=== PATIENT | female | born 1955 | race Caucasian/White ===

== ENCOUNTER → 2017-04-26 | Outpatient (CLI) | payer OTHER ==
[~2017-04-26] MED LIST: ASPI-321 PO; ASPI81TA28 PO; GLC500 PO; HYDR-5688 PO; INSDGI SC; INSDGIPEN SC; LISI-725 PO; LPT/40 PO; METF-384 PO; PANT40TA PO; PARO10TA PO
[2017-04-26 12:49] LABS: BASO % 0.3 %; BASO ABS # 0.02 K/uL (0-0.2); COMPLETE YES; EOS % 1.7 %; HEMATOCRIT 35.2 % (37-47); IG% 0.3 %; LYMPH % 26.8 %; LYMPH ABS # 1.91 K/uL (1.2-3.4); MEAN CELL VOLUME 90.5 fL (80-100); MEAN CORPUSCULAR HEMOGLOBIN 29.6 pg (25-34); MEAN CORPUSCULAR HGB CONC 32.7 g/dl (32-36); MEAN PLATELET VOLUME 9.8 fL (7.4-10.4); MONO % 3.8 %; NEUT % 67.1 %; PLATELET COUNT 268 K/uL (130-400); PLT ESTIMATE NORMAL; RED BLOOD COUNT 3.89 M/uL (4.2-5.4); VACUOLIZATION 2+; WHITE BLOOD COUNT 7.14 K/uL (4.8-10.8)
[2017-04-26 13:01] LABS: ESTIMATED AVERAGE GLUCOSE 171 mg/dl; HA1C FLAG Normal (Normal)
[2017-04-26 13:02] LABS: BLOOD UREA NITROGEN 15 mg/dl (7-18); CALCIUM 9.7 mg/dl (8.5-10.1); CARBON DIOXIDE 26 mmol/L (21-32); CHLORIDE 103 mmol/L (98-107); CREATININE 0.66 mg/dl (0.60-1.20); GLUCOSE 145 mg/dl (70-99); POTASSIUM 4.3 mmol/L (3.5-5.1); SODIUM 139 mmol/L (136-145)
[2017-04-26 13:13] LABS: ALB/GLOB RATIO 1.1 (0.9-2); ALKALINE PHOSPHATASE 88 U/L (45-117); ALT/SGPT 26 U/L (12-78); AST/SGOT 13 U/L (15-37); CHOLESTEROL 157 mg/dl (0-200); CHOLESTEROL/HDL RATIO 3.1; HDL CHOLESTEROL 51 mg/dl; LDL CHOLESTEROL CALCULATED 71 mg/dl; TRIGLYCERIDES 177 mg/dl (0-150); VERY LOW DENSITY LIPOPROT CALC 35 mg/dl
[2017-04-26 13:36] LABS: RATIO 311.5 mcg/mg (0-30.0)
== END | disposition home or self-care (01) ==
LOC: C.LABBFT 08:25
PROVIDERS: ATTEND Physician Assistant Medical
DX: E11.65 Type 2 diabetes mellitus with hyperglycemia (principal)

== ENCOUNTER → 2017-05-29 | Outpatient (CLI) | payer OTHER ==
[2017-05-29 12:24] LABS: BASO % 0.2 %; BASO ABS # 0.01 K/uL (0-0.2); COMPLETE YES; EOS % 1.4 %; HEMATOCRIT 33.6 % (37-47); IG% 0.2 %; LYMPH % 24.8 %; LYMPH ABS # 1.63 K/uL (1.2-3.4); MEAN CELL VOLUME 91.6 fL (80-100); MEAN CORPUSCULAR HEMOGLOBIN 30.2 pg (25-34); MEAN PLATELET VOLUME 9.7 fL (7.4-10.4); MONO % 4.4 %; PLATELET COUNT 247 K/uL (130-400); RED BLOOD COUNT 3.67 M/uL (4.2-5.4); WHITE BLOOD COUNT 6.56 K/uL (4.8-10.8)
[2017-05-29 15:00] LABS: FERRITIN 68.6 ng/ml (8.0-388.0)
== END | disposition home or self-care (01) ==
LOC: C.LABBFT 09:51
PROVIDERS: ATTEND Physician Assistant Medical
DX: D64.9 Anemia, unspecified (principal)

== ENCOUNTER 2017-06-28 13:02 | Emergency (ER) | payer OTHER ==
[~2017-06-28] VITALS: Ht 165.1 cm; Wt 90.0 kg
[~2017-06-28 13:02] MED LIST changes: -ASPI81TA28 PO; -INSDGIPEN SC; -METF-384 PO
[2017-06-28 13:07] VITALS: TEMP 36.4; Ht 165.1 cm; Wt 90.0 kg
[2017-06-28] MEDS ORDERED: ASPI81TA28 PO (13:26)
[2017-06-28] MEDS ORDERED: METF-384 PO (13:26)
[2017-06-28] MEDS ORDERED: INSDGIPEN SC (13:26)
--- NOTE | 2017-06-28 14:09 | DIAGNOSTIC IMAGING REPORT ---
RIGHT KNEE 3 VIEWS HISTORY: 62 years-old Female right knee pain s/p fall Right acute right knee pain status post fall. COMPARISON: Right knee radiographs 08/13/2013. TECHNIQUE: 3 views of the right knee. FINDINGS: The bones are mildly demineralized. Moderate lateral is severe medial and patellofemoral compartment osteoarthritis is noted with extensive marginal spurring. There is a moderate-sized joint effusion. Vascular calcifications are noted. There is no acute fracture or dislocation. IMPRESSION: 1. No acute fracture or dislocation. 2. Moderate lateral with severe medial and patellofemoral compartment osteoarthritis. 3. Moderate joint effusion. The above report was generated using voice recognition software. It may contain grammatical, syntax or spelling errors. Electronically signed by: Mingo Philip M.D. 06/28/2017 2:07 PM Dictated Date/Time: 06/28/2017 2:06 PM
--- NOTE | 2017-06-28 14:12 | DIAGNOSTIC IMAGING REPORT ---
RIGHT HAND MIN 3 VIEWS ROUTINE HISTORY: 62 years-old Female right hand pain/swelling s/p fall Right acute right hand pain and swelling without reported trauma. COMPARISON: None available. TECHNIQUE: 3 views of the right hand FINDINGS: There is an acute or subacute mildly comminuted fracture involving the base of the fifth metacarpal with intra-articular extension into the carpometacarpal joint. There is slight medial displacement of approximately 2 mm. Mild associated soft tissue swelling. Moderate degenerative changes are seen about the wrist and hand, notably within the first carpal metacarpal and interphalangeal joints. IMPRESSION: 1. Acute to subacute mildly comminuted intra-articular fracture involves the base of the fifth metacarpal with surrounding soft tissue swelling. 2. Multifocal degenerative changes about the hand and wrist. The above report was generated using voice recognition software. It may contain grammatical, syntax or spelling errors. Electronically signed by: Mingo Philip M.D. 06/28/2017 2:11 PM Dictated Date/Time: 06/28/2017 2:07 PM
--- NOTE | 2017-06-28 14:40 | EMERGENCY ROOM VISIT NOTE ---
ED Visit Note First contact with patient: 13:22 CHIEF COMPLAINT: Hand injury, fall from sidewalk HISTORY OF PRESENT ILLNESS: This 62-year-old female patient presented to the emergency department approximately one hour after they injured the right hand, and knee when she fell from a sidewalk. The patient states she was walking back to her car, and did not realize there is a sidewalk in front of her. The patient states she tripped over the alleged, and landed on her right hand and leg. The patient states she then hit the right side of her head off of the ground. The patient denies any loss of consciousness. The patient denies any ongoing head pain or headache. She denies any blurry vision, dizziness, nausea , vomiting, confusion, altered mental status, tinnitus, or other associated symptoms. The patient rates the pain in her hand as minimal and and 0/10. The patient denies any numbness or tingling. The patient does not have injuries to the wrist. The patient has not had a previous fracture to this hand. REVIEW OF SYSTEMS: A 6 system review of systems was completed with positives and pertinent negatives in the HPI. ALLERGIES: None MEDICATIONS: Atorvastatin, Lantus, lisinopril, Glucophage, Protonix, Paxil. The patient states she does take aspirin, but she has not taken this in approximately one week. PMH: Hyperlipidemia, diabetes, hypertension, GERD, anxiety/depression SOCIAL HISTORY: Lives locally with family. She denies drug, alcohol, tobacco use. PHYSICAL EXAM: Vital Signs: Reviewed Nurse's notes, vital signs stable. GENERAL : This is a 62-year-old female, in no acute distress, well-developed, well- nourished. MUSCULOSKELETAL: There is no deformity of the right hand. There is tenderness palpation over the fifth metacarpal. There is no thenar or hypothenar eminence atrophy. Normal thumb opposition to all fingers. Mail Order Biller strength 5/5. There is no laceration. Capillary refill less than 2 seconds. No tenderness of the fingers or wrist. Full range of motion of the wrist. No snuff box tenderness. Radial pulse 2+. There is tenderness of the right lateral knee on palpation. There is no instability. Raza and Damari's test negative. No discomfort with walking and the patient is able to bear weight. NEURO: Alert and oriented to person, place, and time. Normal sensation to light and sharp touch. Normal mini-mental status exam. HEAD: Normocephalic, atraumatic. No tenderness on palpation. EYES: Pupils are equal round and reactive to light and accommodation. EOMs are full and optic discs and fundi are normal. There is no swelling or discoloration of the tissue surrounding the eyes. EARS: External auditory canals clear without blood. NOSE: Patent without tenderness. No septal hematoma. FACE: No facial tenderness. NECK: Supple. There is no cervical spine tenderness. The patient does not have tenderness with movement of the neck. RADIOLOGY: X-Ray Right Knee: TECHNIQUE: 3 views of the right knee. FINDINGS: The bones are mildly demineralized. Moderate lateral is severe medial and patellofemoral compartment osteoarthritis is noted with extensive marginal spurring. There is a moderate-sized joint effusion. Vascular calcifications are noted. There is no acute fracture or dislocation. IMPRESSION: 1. No acute fracture or dislocation. 2. Moderate lateral with severe medial and patellofemoral compartment osteoarthritis. 3. Moderate joint effusion. X-Ray Right Hand: TECHNIQUE: 3 views of the right hand FINDINGS: There is an acute or subacute mildly comminuted fracture involving the base of the fifth metacarpal with intra-articular extension into the carpometacarpal joint. There is slight medial displacement of approximately 2 mm. Mild associated soft tissue swelling. Moderate degenerative changes are seen about the wrist and hand, notably within the first carpal metacarpal and interphalangeal joints. IMPRESSION: 1. Acute to subacute mildly comminuted intra-articular fracture involves the base of the fifth metacarpal with surrounding soft tissue swelling. 2. Multifocal degenerative changes about the hand and wrist. EMERGENCY DEPARTMENT COURSE: I examined the patient. X-rays of the right knee and hand was reviewed by myself and radiologist. Right knee x-ray shows no acute fracture or dislocation. X-ray of the right hand does show a fracture at the base of the 5th metacarpal. Under my direct supervision, the patient was put in an Ortho-Glass boxer's splint. Neurovascular status was rechecked and intact. She was encouraged to follow up with orthopedics. Throughout the course of the patient's care, utilizing shared decision making, the patient and I discussed the risks versus benefits of performing a head CT scan. The patient did not hit her head directly, however it it secondarily to hitting her hand. Her neurological examination has been normal since she's gotten here, and she is having no symptoms. The patient decided against having a CT scan completed at this time, and will return to the emergency department for worsening symptoms. The patient was discharged home in good condition. DIFFERENTIAL DIAGNOSIS: Intracranial hemorrhage, closed head injury, concussion , fracture, hand contusion, hand fracture, sprain, knee fracture, contusion, and others. DIAGNOSIS: Right fifth metacarpal fracture, right knee contusion, fall DISCHARGE INSTRUCTIONS: ORTHOPEDIC INSTRUCTIONS: You were seen today for a head injury. We did not complete a CT scan, as your headache went away and examination was normal. If you experience worsening headache, dizziness, blurry vision, nausea/vomiting, or other associated symptoms, return to the ED immediately for further evaluation and management. Ibuprofen(Motrin, Advil) may be used for fever or pain. Use 600mg every six hours as needed. Take with food. Avoid using more than 2400mg in a 24 hour period. Do not use 2400mg per day for more than three consecutive days without physician direction. Prolonged inappropriate use can lead to stomach upset or ulcers. (AND/OR) Acetaminophen(Tylenol) may be used for fever or pain. Use 1000mg every six hours as needed. Avoid using more than 3000mg in a 24 hour period. Ice compresses for 20 minutes at a time four times daily for 2-3 days. Rest and elevate your injury. Do not get the splint wet. If your splint feels excessively tight, you have worsening pain, develop numbness or tingling, or your digits appear blue, loosen the monet wrap. Then reapply the monet wrap gently without removing the splint. If your symptoms are not quickly relieved return to the ER for re- evaluation. Return to the ER immediately for any numbness, tingling, severe pain, extreme swelling in the extremity or as needed. Call [facility], [phone], today or tomorrow to arrange follow up for your injury. Follow-up with your primary care physician in 2 to 3 days for a recheck of your current condition. Problem List Medical Problems: (1) Pancreatitis Status: Resolved (2) Type 2 diabetes mellitus Status: Chronic Current/Historical Medications Scheduled Aspirin (Aspirin Ec), 81 MG PO DAILY Atorvastatin (Lipitor), 40 MG PO QAM Insulin Glargine (Lantus Solostar), 20 UNITS SC DAILY Lisinopril (Zestril), 20 MG PO QAM Metformin Hcl (Glucophage), 1,000 MG PO BIDM Pantoprazole (Protonix), 40 MG PO QAM Paroxetine Hcl (Paxil), 10 MG PO DIRECTED Allergies Coded Allergies: No Known Allergies (Verified , 01/25/16) Vital Signs Date Time Temp Pulse Resp B/P (MAP) Pulse Ox O2 Delivery O2 Flow Rate FiO2 06/28/17 14:52 66 16 112/92 97 06/28/17 13:07 36.4 64 18 99/65 96 Room Air Departure Information Impression Primary Impression: Closed fracture of 5th metacarpal Additional Impressions: Knee contusion Closed head injury Fall Dispostion Home / Self-Care Condition GOOD Referrals Darnell Adhikari M.D. (PCP) Garth German MD Patient Instructions ED Fx Jocelin Rodriguez [facility] Additional Instructions ORTHOPEDIC INSTRUCTIONS: You were seen today for a head injury. We did not complete a CT scan, as your headache went away and examination was normal. If you experience worsening headache, dizziness, blurry vision, nausea/vomiting, or other associated symptoms, return to the ED immediately for further evaluation and management. Ibuprofen(Motrin, Advil) may be used for fever or pain. Use 600mg every six hours as needed. Take with food. Avoid using more than 2400mg in a 24 hour period. Do not use 2400mg per day for more than three consecutive days without physician direction. Prolonged inappropriate use can lead to stomach upset or ulcers. (AND/OR) Acetaminophen(Tylenol) may be used for fever or pain. Use 1000mg every six hours as needed. Avoid using more than 3000mg in a 24 hour period. Ice compresses for 20 minutes at a time four times daily for 2-3 days. Rest and elevate your injury. Do not get the splint wet. If your splint feels excessively tight, you have worsening pain, develop numbness or tingling, or your digits appear blue, loosen the monet wrap. Then reapply the monet wrap gently without removing the splint. If your symptoms are not quickly relieved return to the ER for re- evaluation. Return to the ER immediately for any numbness, tingling, severe pain, extreme swelling in the extremity or as needed. Call [facility], [phone], today or tomorrow to arrange follow up for your injury. Follow-up with your primary care physician in 2 to 3 days for a recheck of your current condition. Problem Qualifiers Primary Impression: Closed fracture of 5th metacarpal Encounter type: initial encounter Metacarpal location: base Fracture alignment: displaced Laterality: right Qualified Codes: S62.316A - Displaced fracture of base of fifth metacarpal bone, right hand, initial encounter for closed fracture Additional Impressions: Knee contusion Encounter type: initial encounter Laterality: right Qualified Codes: S80.01XA - Contusion of right knee, initial encounter Closed head injury Encounter type: initial encounter Qualified Codes: S09.90XA - Unspecified injury of head, initial encounter Fall Encounter type: initial encounter Qualified Codes: W19.XXXA - Unspecified fall, initial encounter
[2017-06-28 14:52] VITALS: BP 112/92; PULSE 66; O2SAT 97
== END 2017-06-28 14:52 | disposition home or self-care (01) ==
LOC: C.EDB 13:03 → C.EDD 14:52
DX: S62.316A Displaced fracture of base of fifth metacarpal bone, right hand, initial encounter for closed fracture (principal); S80.01XA Contusion of right knee, initial encounter; S09.90XA Unspecified injury of head, initial encounter; W10.1XXA Fall (on)(from) sidewalk curb, initial encounter; Z79.899 Other long term (current) drug therapy; Z79.4 Long term (current) use of insulin; E78.5 Hyperlipidemia, unspecified; E11.9 Type 2 diabetes mellitus without complications; I10 Essential (primary) hypertension; K21.9 Gastro-esophageal reflux disease without esophagitis; F41.8 Other specified anxiety disorders

== ENCOUNTER → 2017-07-05 | Outpatient (CLI) | payer OTHER ==
[~2017-07-05] MED LIST changes: -ASPI-321 PO; +ASPI81TA28 PO; -GLC500 PO; -HYDR-5688 PO; -INSDGI SC; +INSDGIPEN SC; +METF-384 PO
== END | disposition home or self-care (01) ==
LOC: C.RDSM 09:13
PROVIDERS: ATTEND Orthopaedic Surgery Sports Medicine
DX: S62.347A Nondisplaced fracture of base of fifth metacarpal bone, left hand, initial encounter for closed fracture (principal); X58.XXXA Exposure to other specified factors, initial encounter

== ENCOUNTER → 2017-07-26 | Outpatient (CLI) | payer OTHER | END | disposition home or self-care (01) | LOC: C.RDSM 11:35 | PROVIDERS: ATTEND Orthopaedic Surgery Sports Medicine | DX: Z09 Encounter for follow-up examination after completed treatment for conditions other than malignant neoplasm (principal); S62.91XD Unspecified fracture of right hand, subsequent encounter for fracture with routine healing; X58.XXXD Exposure to other specified factors, subsequent encounter ==

== ENCOUNTER → 2017-08-10 | Day surgery (SDC) | payer OTHER ==
[2017-08-01 13:54] VITALS: Ht 162.6 cm; Wt 89.5 kg
[~2017-08-10] VITALS: Ht 162.6 cm; Wt 89.5 kg
[~2017-08-10] MED LIST changes: -ASPI81TA28 PO; +LABETALOL HCL IV 5 MG/ML 20ML IV ONE; +LIDOCAINE HCL 2% 2 ML VIAL (20MG/ML) ONE; +MIDAZOLAM HCL 1 MG/ML 2ML VIAL ONE; +ONDANSETRON INJ 2 MG/ML 2 ML VIAL ONE; +PROPOFOL IV EMULSION 10 MG/ML 20 ML VIAL IV ONE
[2017-08-10 14:35] VITALS: TEMP 36.6
--- NOTE | 2017-08-10 15:30 | Endo History and Physical ---
History & Physical Date of Service: Aug 10, 2017. Chief Complaint: anemia abnormal video capsule endoscopy Referring Physician: Dr. Adhikari History of Present Illness anemia- capsule study finding Past Medical History Diabetes, Anxiety, Reflux, High Cholesterol, Hypertension Past Surgical History Hx Cardiac Surgery: No Hx Internal Defibrillator: No Hx Pacemaker: No Hx Abdominal Surgery: Yes (APPY, BILLY) Hx of Implantable Prosthesis: No Hx Post-Op Nausea and Vomiting: No Hx Cancer Surgery: No Hx Thoracic Surgery: No Hx Orthopedic: Yes (LEFT ARM SURGERY (HARDWARE)) Hx Urinary Tract Surgery: No Family History None Social History Smoking Status: Never Smoker Hx Substance Use: No Hx Alcohol Use: Yes (RARELY) Allergies Coded Allergies: No Known Allergies (Verified , 08/01/17) Current Medications Reported Home Medications Medications Dose Route/Sig Max Daily Dose Days Date Category Dose Instructions Glucophage (Metformin Hcl) 1,000 Mg Tab 1,000 Mg PO BIDM 06/28/17 Reported Lantus Solostar (Insulin Glargine) 100 Unit/Ml Inj 10 Units SC HS 06/28/17 Reported Paxil (Paroxetine Hcl) 10 Mg Tab 10 Mg PO DIRECTED 07/27/15 Reported PT ONLY TAKES WHEN NECESSARY, NOT EVERY DAY Protonix (Pantoprazole Sodium) 40 Mg Tab 40 Mg PO DAILY PRN 07/27/15 Reported Lipitor (Atorvastatin) 40 Mg Tab 40 Mg PO QAM 08/13/13 Reported Zestril (Lisinopril) 20 Mg Tab 20 Mg PO QAM 12/17/09 Reported Vital Signs Weight (Kilograms): 89.55 Height (Feet): 5 Height (Inches): 4 Date Time Temp Pulse Resp B/P (MAP) Pulse Ox O2 Delivery O2 Flow Rate FiO2 08/10/17 14:35 36.6 77 18 110/74 (86) 99 Room Air Physical Exam AAox3 Nls1s2 Lungs CTA Abd soft NT ND + BS - CCE Assessment and Plan EGD/SB enterscopy
--- NOTE | 2017-08-10 16:48 | Anesthesiology Progress Note ---
Anesthesia Post Op Note Date & Time Aug 10, 2017 at 16:48 Vital Signs Pain Intensity: 0 Vital Signs Past 12 Hours Date Time Temp Pulse Resp B/P (MAP) Pulse Ox O2 Delivery O2 Flow Rate FiO2 08/10/17 14:35 36.6 77 18 110/74 (86) 99 Room Air Notes Mental Status: alert / awake / arousable, participated in evaluation Pt Amnestic to Procedure: Yes Nausea / Vomiting: adequately controlled Pain: adequately controlled Airway Patency, RR, SpO2: stable & adequate BP & HR: stable & adequate Hydration State: stable & adequate Anesthetic Complications: no major complications apparent
--- NOTE | 2017-08-10 16:56 | GI REPORT ---
Procedure Date: 08/10/2017 3:50 PM Procedure: Upper GI endoscopy Indications: Iron deficiency anemia secondary to chronic blood loss, Abnormal video capsule endoscopy Medicines: Propofol per Anesthesia Complications: No immediate complications. Estimated blood loss: None. Estimated Blood Loss: Estimated blood loss: none. Procedure: Pre-Anesthesia Assessment: - Prior to the procedure, a History and Physical was performed, and patient medications and allergies were reviewed. The patient's tolerance of previous anesthesia was also reviewed. The risks and benefits of the procedure and the sedation options and risks were discussed with the patient. All questions were answered, and informed consent was obtained. Prior Anticoagulants: The patient has taken no previous anticoagulant or antiplatelet agents. ASA Grade Assessment: II - A patient with mild systemic disease. After reviewing the risks and benefits, the patient was deemed in satisfactory condition to undergo the procedure. After obtaining informed consent, the endoscope was passed under direct vision. Throughout the procedure, the patient's blood pressure, pulse, and oxygen saturations were monitored continuously. The scope was introduced through the mouth, and advanced to the mid-jejunum. The upper GI endoscopy was accomplished without difficulty. The patient tolerated the procedure well. Findings: The examined esophagus was normal. The entire examined stomach was normal. The cardia and gastric fundus were normal on retroflexion. Retained gastric contents are not identified on this exam. The examined duodenum was normal. The examined jejunum was normal. Impression: - Normal esophagus. - Normal stomach. - Normal examined duodenum. - Normal examined jejunum. - No specimens collected. Recommendation: - Discharge patient to home (ambulatory). - Advance diet as tolerated. - Check hemoglobin monthly. - Return to referring physician as previously scheduled. - If heme positive stools occur/persist or if anemic may need to consider [place] [facility] [place] Willem Akhtar MD 08/10/2017 4:55:42 PM This report has been signed electronically. Note Initiated On: 08/10/2017 3:50 PM I attest to the content of the Intraoperative Record and orders documented therein, exceptions below
[2017-08-10 17:09] VITALS: BP 96/56; PULSE 69; O2SAT 96
--- NOTE | 2017-08-10 17:20 | Discharge Instructions ---
Endoscopy Patient Instructions Date / Procedure(s) Performed Aug 10, 2017. EGD Allergy Information Coded Allergies: No Known Allergies (Verified , 08/01/17) Discharge Date / Findings Aug 10, 2017. normal EGD/SBE Medication Instructions Stopped Medication(s): last dose Glucophage last agustín Restart Stopped Medication(s): Reported Home Medications Medications Dose Route/Sig Max Daily Dose Days Date Category Dose Instructions Glucophage (Metformin Hcl) 1,000 Mg Tab 1,000 Mg PO BIDM 06/28/17 Reported Lantus Solostar (Insulin Glargine) 100 Unit/Ml Inj 10 Units SC HS 06/28/17 Reported Paxil (Paroxetine Hcl) 10 Mg Tab 10 Mg PO DIRECTED 07/27/15 Reported PT ONLY TAKES WHEN NECESSARY, NOT EVERY DAY Protonix (Pantoprazole Sodium) 40 Mg Tab 40 Mg PO DAILY PRN 07/27/15 Reported Lipitor (Atorvastatin) 40 Mg Tab 40 Mg PO QAM 08/13/13 Reported Zestril (Lisinopril) 20 Mg Tab 20 Mg PO QAM 12/17/09 Reported Provider Instructions Activity Restrictions - No exercising or heavy lifting for 24 hours. - Do not drink alcohol the day of the procedure. - Do not drive a car or operate machinery until the day after the procedure. - Do not make any important decisions or sign important papers in 24 hours after the procedure. Following Day: - Return to full activity which may include returning to work/school. Diet Start your diet with liquids and light foods (jello, soup, juice, toast). Then eat your usual diet if not nauseated. Treatment For Common After Affects For mild abdominal pain, bloating, or excessive gas: - Rest - Eat lightly - Lie on right side Reported Home Medications Medications Dose Route/Sig Max Daily Dose Days Date Category Dose Instructions Glucophage (Metformin Hcl) 1,000 Mg Tab 1,000 Mg PO BIDM 06/28/17 Reported Lantus Solostar (Insulin Glargine) 100 Unit/Ml Inj 10 Units SC HS 06/28/17 Reported Paxil (Paroxetine Hcl) 10 Mg Tab 10 Mg PO DIRECTED 07/27/15 Reported PT ONLY TAKES WHEN NECESSARY, NOT EVERY DAY Protonix (Pantoprazole Sodium) 40 Mg Tab 40 Mg PO DAILY PRN 07/27/15 Reported Lipitor (Atorvastatin) 40 Mg Tab 40 Mg PO QAM 08/13/13 Reported Zestril (Lisinopril) 20 Mg Tab 20 Mg PO QAM 12/17/09 Reported Follow-Up Information Follow-up with Dr. Adhikari as scheduled Anesthesia Information What You Should Know You have had a procedure that required some medicine to reduce anxiety and discomfort. This treatment is called moderate sedation. After receiving the treatment, you may be sleepy, but you will be able to breathe on your own. The effects of the treatment may last for several hours. Follow these instructions along with Activity/Diet recommendations noted above: * Do NOT do anything where dizziness or clumsiness would be dangerous. * Rest quietly at home today, then you can be up and about tomorrow. * Have a responsible person stay with you the rest of today. * You may have had an I.V. today. If so, you may take the dressing off later today. Recommendations Call your doctor if: * Trouble breathing * Continuous vomiting for more than 24 hours * Temperature above 101 degrees * Severe abdominal pain or bloating * Pain not relieved by pain medicine ordered * There is increased drainage or redness from any incision * A large amount of rectal bleeding greater than 2-3 tablespoons. (If you had a polyp/s removed or have hemorrhoids, a small amount of blood - from the rectum is to be expected.) * You have any unanswered questions or concerns. IN THE EVENT OF A SERIOUS EMERGENCY, GO TO THE NEAREST EMERGENCY ROOM Your discharge instructions were prepared by provider Willem Phoenix. Patient Instructions Signature Page Delicia Man Patient (or Guardian) Signature/Date: I have read and understand the instructions given to me by my caregivers. Caregiver/RN/Doctor Signature/Date: The above-named patient and/or guardian has received patient instructions on this date. + Original Patient Signature Page (only) stays with chart. Please make copy for patient.
[2017-08-10 18:49] LABS: HEMATOCRIT 31.7 % (37-47); MEAN CELL VOLUME 90.3 fL (80-100); MEAN CORPUSCULAR HEMOGLOBIN 30.2 pg (25-34); MEAN CORPUSCULAR HGB CONC 33.4 g/dl (32-36); MEAN PLATELET VOLUME 9.9 fL (7.4-10.4); PLATELET COUNT 220 K/uL (130-400); RED BLOOD COUNT 3.51 M/uL (4.2-5.4); WHITE BLOOD COUNT 10.88 K/uL (4.8-10.8)
== END | disposition home or self-care (01) ==
LOC: C.GI 14:02
PROVIDERS: ATTEND Internal Medicine Gastroenterology
DX: D64.9 Anemia, unspecified (principal); E11.9 Type 2 diabetes mellitus without complications; F41.9 Anxiety disorder, unspecified; K21.9 Gastro-esophageal reflux disease without esophagitis; E78.00 Pure hypercholesterolemia, unspecified; I10 Essential (primary) hypertension; Z90.89 Acquired absence of other organs; Z90.49 Acquired absence of other specified parts of digestive tract; Z79.84 Long term (current) use of oral hypoglycemic drugs; Z79.4 Long term (current) use of insulin

== ENCOUNTER → 2017-09-25 | Outpatient (CLI) | payer OTHER ==
[~2017-09-25] MED LIST changes: -LABETALOL HCL IV 5 MG/ML 20ML IV ONE; -LIDOCAINE HCL 2% 2 ML VIAL (20MG/ML) ONE; -MIDAZOLAM HCL 1 MG/ML 2ML VIAL ONE; -ONDANSETRON INJ 2 MG/ML 2 ML VIAL ONE; -PROPOFOL IV EMULSION 10 MG/ML 20 ML VIAL IV ONE
[2017-09-25 12:36] LABS: FERRITIN 66.1 ng/ml (8.0-388.0)
[2017-09-25 12:40] LABS: BASO % 0.3 %; BASO ABS # 0.02 K/uL (0-0.2); COMPLETE YES; EOS % 1.7 %; IG% 0.1 %; LYMPH % 25.2 %; LYMPH ABS # 1.83 K/uL (1.2-3.4); MEAN CELL VOLUME 92.6 fL (80-100); MEAN CORPUSCULAR HGB CONC 32.4 g/dl (32-36); MEAN PLATELET VOLUME 9.9 fL (7.4-10.4); MONO % 3.9 %; NEUT % 68.8 %; PLATELET COUNT 259 K/uL (130-400); RED BLOOD COUNT 3.67 M/uL (4.2-5.4); WHITE BLOOD COUNT 7.27 K/uL (4.8-10.8)
== END | disposition home or self-care (01) ==
LOC: C.LABBFT 09:31
PROVIDERS: ATTEND Physician Assistant Medical
DX: D64.9 Anemia, unspecified (principal)

== ENCOUNTER 2019-05-17 05:06 | Inpatient (IN) ==
[2019-05-17] MEDS ORDERED: ONDANSETRON INJ 2 MG/ML 2 ML VIAL IV STA (05:21)
[2019-05-17] MEDS ORDERED: SODIUM CHLORIDE 0.9% 1000ML 1,000 ML IV ONE (05:21)
[2019-05-17] MEDS ORDERED: MoRPHine SULFATE 10 MG/ML CARP/VIAL IV STA (05:21)
--- NOTE | 2019-05-17 05:39 | Emergency Department Note ---
History of Present Illness General Chief complaint: Abdominal Pain Stated complaint: NAUSEA,VOMITING,ABD PAIN Source: patient Mode of arrival: ambulatory Limitations: no limitations History of Present Illness Maximum Pain Intensity: 8 This patient is a 64-year-old female who presents to the emergency department complaining of abdominal pain, nausea and vomiting which started 12 hours ago. The patient states that she ate a biscuit given to her by a client and immediately began to feel pain in her upper abdomen and vomiting. She has since had multiple episodes of vomiting and persistent pain. She rates her discomfort an 8/10. She states that she has been having sweats. She has had a prior cholecystectomy and appendectomy. She reports this pain feels similar to when she had her cholecystectomy. She states nothing makes the pain better or worse. She denies fevers, diarrhea, chest pain or shortness of breath. She is a diabetic but states that her sugars are well controlled with medication. Home Medications Home Medications Medication Instructions Recorded Confirmed Type lisinopril 20 mg tablet 20 mg PO DAILY #90 tab 03/27/19 05/17/19 History metformin 1,000 mg tablet 1,000 mg PO BID #180 tab 03/27/19 05/17/19 History pantoprazole 40 mg tablet,delayed 40 mg PO DAILY #90 tab 03/27/19 05/17/19 History release atorvastatin 40 mg tablet 40 mg PO HS #90 tab 04/18/19 05/17/19 Rx Allergies Allergy/AdvReac Type Severity Reaction Status Date / Time No Known Allergies Allergy Verified 05/17/19 05:33 Past Med/Surg History Medical History Microalbuminuria (Acute) Internal hemorrhoids (Acute) Hypertension (Acute) Hyperlipidemia (Acute) Fatty liver (Acute) Diverticulosis of colon (Acute) Diabetes mellitus type 2, uncontrolled (Acute) Depression (Acute) Anemia (Acute) Acid reflux disease (Acute) Abdominal pain (Acute) Social History Feels Safe at Home: Yes Smoking Status: Never smoker Review of Systems A total of 10 systems reviewed and were otherwise negative Physical Exam Vital Signs Vital Signs - 24 hr 05/17/19 05:09 05/17/19 05:50 05/17/19 06:05 Temperature 36.7 C Temperature Source Oral Sepsis Action Taken by Nursing No Action Required Oxygen Flow Rate - Titration 2 Pulse Oximetry Post Tiitration 93 Pulse Rate 98 H Pulse Rate [Apical] 90 Respiratory Rate 18 18 Respiratory Effort / Characteristics Non-Labored Respiratory Depth Normal Blood Pressure 144/99 H Blood Pressure [Right Arm] 145/97 H Blood Pressure Mean 114 Blood Pressure Mean [Right Arm] 113 Pulse Oximetry 98 87 L 99 Oxygen Delivery Method Room Air Nasal Cannula Oxygen Flow Rate 0 2 05/17/19 06:34 Temperature Temperature Source Sepsis Action Taken by Nursing Oxygen Flow Rate - Titration Pulse Oximetry Post Tiitration Pulse Rate Pulse Rate [Apical] 92 H Respiratory Rate 19 Respiratory Effort / Characteristics Respiratory Depth Blood Pressure Blood Pressure [Right Arm] 163/108 H Blood Pressure Mean Blood Pressure Mean [Right Arm] 126 Pulse Oximetry 99 Oxygen Delivery Method Nasal Cannula Oxygen Flow Rate 2 VITALS: Vitals are noted on the nurse's note and reviewed by myself. Vital signs stable. GENERAL: This is a 64-year-old female, in no acute distress, nondiaphoretic, well-developed well-nourished. SKIN: The skin was without rashes, erythema, edema, or bruising. EARS: External auditory canals clear, tympanic membranes pearly murray without erythema or effusion bilaterally. EYES: Pupils equal round and reactive to light and accommodation. Conjunctivae without injection, sclerae without icterus. MOUTH: Mucous membranes moist. Tonsils are not enlarged. Pharynx without erythema or exudate. NECK: Supple without nuchal rigidity. No lymphadenopathy. HEART: Regular rate and rhythm without murmurs gallops or rubs. LUNGS: Clear to auscultation bilaterally without wheezes, rales or rhonchi. ABDOMEN: Positive bowel sounds x 4. Soft, moderate tenderness to palpation in the epigastric region. No guarding or rebound tenderness. NEURO: Patient was alert and oriented to person place and time. Course Reevaluation(s) Reevaluation #1: Patient was reevaluated and states that her pain is starting to come back after returning from CT scan. An additional dose of pain medication was ordered. Results were discussed with the patient and she is agreeable to admission. Consultations Consultation #1: Dr. Gurvinder Cerda - [facility] hospitalist Administered Medications Ioversol (Optiray 320 100ml) 94 ml IV ONCE PRN PRN Reason: Interaction Checking Stop: 05/21/19 06:10 Last Admin: 05/17/19 06:11 Dose: 94 ml Documented by: [id number] Discontinued Medications Sodium Chloride (Nss 1000ml) 1,000 mls @ 999 mls/hr IV .Q1H1M ONE Stop: 05/17/19 06:21 Last Infusion: 05/17/19 06:54 Dose: 0 mls/hr Documented by: [id number] Admin: 05/17/19 05:40 Dose: 999 mls/hr Documented by: [id number] Morphine Sulfate (Morphine Sulfate) 6 mg IV NOW STA Stop: 05/17/19 05:22 Last Admin: 05/17/19 05:39 Dose: 6 mg Documented by: [id number] Ondansetron HCl (Zofran) 4 mg IV NOW STA Stop: 05/17/19 05:22 Last Admin: 05/17/19 05:40 Dose: 4 mg Documented by: [id number] Medical Decision Making Differential Diagnosis Differential diagnosis includes pancreatitis, kidney stone, peptic ulcer disease, bowel obstruction, gastroenteritis, among others. Home Medications Current Medication List: was personally reviewed by me Laboratory Data Attestation: I reviewed the patient's lab results. Result diagrams: 05/17/19 05:33 05/17/19 05:33 Lab Results 05/17/19 05/17/19 05/17/19 Range/Units 05:33 05:33 06:06 WBC 14.36 H (4.8-10.8) K/uL RBC 4.26 (4.2-5.4) M/uL Hgb 13.1 (12.0-16.0) g/dL Hct 38.4 (37-47) % MCV 90.1 (80-100) fL MCH 30.8 (25-34) pg MCHC 34.1 (32-36) g/dL RDW Std Deviation 43.5 (36.4-46.3) fL RDW Coeff of Carlos Alberto 13.1 (11.5-14.5) % Plt Count 252 (130-400) K/uL MPV 9.7 (7.4-10.4) fL Immature Gran % (Auto) 0.2 % Neut % (Auto) 88.7 % Lymph % (Auto) 5.6 % [place] % (Auto) 5.4 % Eos % (Auto) 0.0 % Baso % (Auto) 0.1 % Immature Gran # (Auto) 0.03 H (0.00-0.02) K/uL Neut # (Auto) 12.74 H (1.4-6.5) K/uL Lymph # (Auto) 0.81 L (1.2-3.4) K/uL [place] # (Auto) 0.77 H (0.11-0.59) K/uL Eos # (Auto) 0.00 (0-0.5) K/uL Baso # (Auto) 0.01 (0-0.2) K/uL Sodium 139 (136-145) mmol/L Potassium 3.6 (3.5-5.1) mmol/L Chloride 102 (98-107) mmol/L Carbon Dioxide 22 (21-32) mmol/L Anion Gap 15.0 H (3-11) BUN 24 H (7-18) mg/dl Creatinine 0.81 (0.6-1.2) mg/dl Est Cr Clr Drug Dosing 72.2 ml/min Est GFR ( Amer) 88.3 Est GFR (Non-Af Amer) 76.2 BUN/Creatinine Ratio 29.7 H (10-20) Glucose 221 H (70-99) mg/dl Calcium 9.1 (8.5-10.1) mg/dl Total Bilirubin 1.0 (0.2-1) mg/dl AST 21 (15-37) U/L ALT 29 (12-78) U/L Alkaline Phosphatase 64 (45-117) U/L Troponin I < 0.015 (0-0.045) ng/ml Total Protein 8.1 (6.4-8.2) gm/dl Albumin 4.5 (3.4-5.0) gm/dl Globulin 3.6 (2.5-4.0) gm/dl Albumin/Globulin Ratio 1.3 (0.9-2) Lipase 8939 H (73-393) U/L Urine Color Dark Yellow Urine Appearance Cloudy A (Clear) Urine pH 5.0 (4.5-7.5) Ur Specific [place] 1.028 (1.000-1.030) Urine Protein 2+ H (Negative) Urine Glucose (UA) Negative (Negative) Urine Ketones 2+ H (Negative) Urine Blood Trace H (Negative) Urine Nitrite Negative (Negative) Urine Bilirubin Negative (Negative) Urine Urobilinogen Negative (Negative) Ur Leukocyte Esterase Negative (Negative) Urine WBC (Auto) 1-5 (0-5) /hpf Urine RBC (Auto) 0-4 (0-4) /hpf U Hyaline Cast (Auto) 1-5 (0-5) /lpf U Epithel Cells (Auto) >30 H (0-5) /lpf Urine Bacteria (Auto) Negative (Negative) Ur Renal Epithelial Cell Not Reportable Imaging Data Attestation: I personally reviewed and interpreted this imaging study as follows: Radiologist's Impression: CT ABDOMEN & PELVIS With Contrast: Comparison: CT abdomen and pelvis 01/25/16. Peripancreatic fat stranding and fluid consistent with acute pancreatitis. No organized peripancreatic collections. No evidence of pancreatic parenchymal necrosis. Ascites tracks inferiorly into the pelvis. Cholecystectomy. Trace intrahepatic biliary dilatation. Dilated common bile duct measuring up to 1 cm, which may be on the basis of reservoir effect; however, an obstructing common bile duct stone is not excluded. Correlate clinically and consider MRCP as indicated. Spleen, adrenal glands, and kidneys are unremarkable. Appendix not visualized. No obstructive or inflammatory changes of the bowel. Urinary bladder and uterus are unremarkable. No acute osseous findings. Radiologist: Bhavya Fay M.D. Blood Pressure Blood Pressure Findings: Elevated blood pressure Blood Pressure Disposition: elevated BP felt to be situational MDM Narrative The patient is a 64-year-old female who presents today complaining of upper abdominal pain and vomiting. Labs revealed a leukocytosis of 14,000, no concerning anemia or electrolyte abnormalities. Lipase was elevated at nearly 9000. CT shows evidence of pancreatitis as well as a slightly dilated common bile duct. Patient will require further evaluation as well as pain control and IV fluids. I spoke with the [facility] hospitalist service, who agreed to evaluate the patient for admission. Impression & Plan Acute pancreatitis Discharge Plan Visit Data Chief Complaint: Abdominal Pain Stated Complaint: NAUSEA,VOMITING,ABD PAIN ED Provider: Suri Vivar ED Midlevel Provider: Carlyn Maddox Discharge Problem: Acute pancreatitis Forms Stand Alone Forms: Call Back Authorization, My [facility] Prescriptions Prescriptions: No Action atorvastatin 40 mg tablet 40 mg PO HS Qty: 90 RF: 1 pantoprazole 40 mg tablet,delayed release (DR/EC) 40 mg PO DAILY Qty: 90 RF: 0 lisinopril 20 mg tablet 20 mg PO DAILY Qty: 90 RF: 0 metformin 1,000 mg tablet 1,000 mg PO BID Qty: 180 RF: 0 Referrals Referrals: Stephen Adhikari MD [Primary Care Provider] -
[2019-05-17 05:46] LABS: Basophils # (auto) 0.01 K/uL (0-0.2); Basophils % (auto) 0.1 %; Hematocrit (blood only) 38.4 % (37-47); Hemoglobin 13.1 g/dL (12.0-16.0); Immature Granulocytes # (auto) 0.03 K/uL (0.00-0.02); Immature Granulocytes % (auto) 0.2 %; Lymphocytes # (auto) 0.81 K/uL (1.2-3.4); Lymphocytes % (auto) 5.6 %; Mean Corpuscular Hgb Conc 34.1 g/dL (32-36); Mean Corpuscular Volume 90.1 fL (80-100); Mean Platelet Volume 9.7 fL (7.4-10.4); Monocytes # (auto) 0.77 K/uL (0.11-0.59); Monocytes % (auto) 5.4 %; Neutrophils # (auto) 12.74 K/uL (1.4-6.5); Neutrophils % (auto) 88.7 %; Platelet Count 252 K/uL (130-400); RDW Coefficient of Variation 13.1 % (11.5-14.5); RDW Standard Deviation 43.5 fL (36.4-46.3); Red Blood Count 4.26 M/uL (4.2-5.4); White Blood Count 14.36 K/uL (4.8-10.8)
[2019-05-17 06:02] LABS: Alanine Aminotransferase 29 U/L (12-78); Albumin Level 4.5 gm/dl (3.4-5.0); Aspartate Aminotransferase 21 U/L (15-37); BUN Creatinine Ratio 29.7 (10-20); Blood Urea Nitrogen 24 mg/dl (7-18); Calcium 9.1 mg/dl (8.5-10.1); Carbon Dioxide 22 mmol/L (21-32); Chloride 102 mmol/L (98-107); Creatinine Clr Calc Pharmacy 72.2 ml/min; Est GFR (African American) 88.3; Est GFR (Non-African American) 76.2; Glucose 221 mg/dl (70-99); Potassium 3.6 mmol/L (3.5-5.1); Sodium 139 mmol/L (136-145)
[2019-05-17 06:07] LABS: Albumin Globulin Ratio 1.3 (0.9-2); Alkaline Phosphatase 64 U/L (45-117); Globulin 3.6 gm/dl (2.5-4.0); Total Protein 8.1 gm/dl (6.4-8.2); Troponin I < 0.015 ng/ml (0-0.045)
[2019-05-17] MEDS ORDERED: IOVERSOL 100ml IV PRN (06:11)
[2019-05-17 06:21] LABS: Appearance Urine Cloudy (Clear); Bacteria Urine Automated Negative (Negative); Bilirubin Urine Negative (Negative); Color Urine Dark Yellow; Epithelial Cell Urine Auto >30 /lpf (0-5); Glucose Urine UA Negative (Negative); Ketones Urine 2+ (Negative); Leukocyte Esterase Urine Negative (Negative); Nitrite Urine Negative (Negative); Protein Urine 2+ (Negative); Specific Gravity Urine 1.028 (1.000-1.030); Urobilinogen Urine Negative (Negative)
[2019-05-17] MEDS ORDERED: HYDROmorphone INJ 0.5 MG/0.5 ML SYR IV STA (07:00)
--- NOTE | 2019-05-17 07:40 | CT Scan Report ---
CT SCAN OF THE ABDOMEN AND PELVIS WITH IV CONTRAST CLINICAL HISTORY: Upper abdominal pain. Vomiting. COMPARISON STUDY: Abdominal CT dated 01/25/2016. TECHNIQUE: Following the IV administration of 94 cc of Optiray 320, CT scan of the abdomen and pelvi s is performed from the lung bases to the proximal femora. Images are reviewed in the axial, sagittal , and coronal planes. IV contrast was administered without complication. A dose lowering technique wa s utilized adhering to the principles of ALARA. CT DOSE: 819.84 mGy.cm FINDINGS: Lung bases: The heart is normal in size and without pericardial effusion. There are coronary artery c alcifications. The lung bases are clear noting dependent atelectasis. Liver: The contrast-enhanced liver is normal in size, contour, and attenuation. There is mild central intrahepatic biliary ductal dilatation. The hepatic veins and portal veins are patent. Gallbladder: Surgically absent noting clips in the gallbladder fossa. The common bile duct measures u p to 10 mm at the head of the pancreas. Spleen: Normal in size and attenuation. Pancreas: The pancreas appears enlarged and edematous. There is peripancreatic stranding and fluid. T he gland enhances homogeneously. No organized peripancreatic collection is identified. The splenic ve in is patent. Adrenal glands: Unremarkable. Kidneys: The contrast enhanced kidneys are normal in size and without hydronephrosis. The kidneys enh ance symmetrically. Abdominal vasculature: The abdominal aorta is normal in course and caliber noting moderate to advance d atherosclerotic calcification. Bowel: There is mild colonic diverticulosis without CT evidence of acute diverticulitis. No bowel obs truction is identified. The duodenum appears mildly thick-walled and hyperemic, likely secondary to a cute pancreatitis. The appendix is not identified and reported surgically absent. Peritoneum: There is a small volume of abdominopelvic ascites. No intraperitoneal free air is seen. T here is a small fat-containing umbilical hernia. Lymphadenopathy: None. Pelvic viscera: The bladder is normal as imaged. The uterus and adnexa are grossly unremarkable. Skeletal structures: The skeletal structures are osteopenic. There is mild lumbosacral spondylosis an d scoliosis. No lytic or blastic lesions are seen. IMPRESSION: 1. Findings are consistent with acute pancreatitis. 2. The pancreas enhances homogeneously, and no organized peripancreatic fluid collection is identifie d. 3. Mild wall thickening and hyperemia of the duodenum is likely secondary to adjacent pancreatitis. 4. There is a small volume of abdominopelvic ascites. 5. Additional findings as above. Electronically signed by: Tavo Hernandez M.D. 05/17/2019 7:39 AM
--- NOTE | 2019-05-17 08:04 | History & Physical Report ---
Date of Service May 17, 2019 Assessment & Plan (1) Acute pancreatitis: Lipase was [address] a/p on 05/17 shows acute pancreatitis without fluid collection. CBD measures up to 10mm at the head of the pancreas. - Pain control - NPO - IV fluids - Discussed with GI - Will get RUQ u/s first, then MRCP if needed - GI consulted (2) Hypertension: Hold lisinopril while NPO; will give IV HTN meds as needed. (3) Hyperlipidemia: - Hold statin while NPO; restart as able. (4) Diabetes mellitus type 2, uncontrolled: - Hold metformin while NPO. - Sliding scale insulin (5) DVT prophylaxis: SCDs - Low DVT risk per admission calculator History of Present Illness Primary Care Provider: Darnell Adhikari MD 64-year-old female with a history of diabetes and hypertension who presents with pancreatitis. She had one episode of pancreatitis 3 to 4 years ago after her cholecystectomy which she reports is similar in the pain and presentation to this presentation. She reports that approximately 4 PM she has sudden onset of sharp epigastric pain rating through to the back accompanied by nausea and vomiting. Some diaphoresis, but no fevers or chills. No shortness of breath, headache, changes in bowel or bladder continence. Allergies Allergy/AdvReac Type Severity Reaction Status Date / Time No Known Allergies Allergy Verified 05/17/19 05:33 Home Medications Home Medications Medication Instructions Recorded Confirmed Type lisinopril 20 mg tablet 20 mg PO DAILY #90 tab 03/27/19 05/17/19 History metformin 1,000 mg tablet 1,000 mg PO BID #180 tab 03/27/19 05/17/19 History pantoprazole 40 mg tablet,delayed 40 mg PO DAILY #90 tab 03/27/19 05/17/19 History release atorvastatin 40 mg tablet 40 mg PO HS #90 tab 04/18/19 05/17/19 Rx Past Med/Surg History Medical History Microalbuminuria (Acute) Internal hemorrhoids (Acute) Hypertension (Acute) Hyperlipidemia (Acute) Fatty liver (Acute) Diverticulosis of colon (Acute) Diabetes mellitus type 2, uncontrolled (Acute) Depression (Acute) Anemia (Acute) Acid reflux disease (Acute) Abdominal pain (Acute) Family History Father Diabetes Hypertension Social History Feels Safe at Home: Yes Smoking Status: Never smoker Hx Alcohol Use: No Hx Substance Use: No Review of Systems Constitutional: no fever, no chills and no sweats Eyes: no diplopia Ear, Nose, Mouth, Throat: no ear trauma, no nasal discharge and no dental pain Respiratory: no cough, no chest congestion and no dyspnea Cardiovascular: no chest pain, no dyspnea on exertion, no palpitations and no syncope Gastrointestinal: no abdominal pain, no belching, no constipation, no diarrhea/loose stools, no blood in stools and no melena Musculoskeletal: no back pain, no joint pain and no muscle weakness Integumentary: no rash, no skin ulcer and no erythema Neurologic: no generalized weakness, no loss of sensation, no numbness and no paresthesia Psychiatric: no depression and no anxiety Endocrine: no fatigue, no polydipsia and no polyphagia Physical Exam Constitutional: WD/WN, vitals as above Eyes: EOM intact bilaterally; no conjunctival abnormality ENMT: external ear and nose normal, oropharynx normal Neck: trachea midline, no thyromegaly normal visual inspection Respiratory: normal respiratory effort, lungs clear to auscultation no respiratory distress Cardiovascular: RRR, no murmur, no edema Gastrointestinal (Abdomen): Inspection/Auscultation: abdomen normal to inspection; abdomen not distended Percussion/Palpation: + abdomen tender (Epigastric), + guarding and abdomen soft; abdomen not rigid Musculoskeletal: no cyanosis or clubbing, extremities motor strength 5/5 Skin: no rashes, warm and dry Neurologic: moves all extremities and awake Psychiatric: Orientation: alert, oriented to person and cooperative Results & Data Vital Signs (Past 12 Hours) Vital Signs Temp Pulse Pulse Resp BP BP Pulse Ox 05/17/19 06:34 92 H 19 163/108 H 99 05/17/19 06:05 90 18 145/97 H 99 05/17/19 05:50 87 L 05/17/19 05:09 36.7 C 98 H 18 144/99 H 98 PG Care Time/CCT Total # of Minutes Spent Total Time Spent with Patient: Total time spent is greater than 50% in coordination of care (as documented) at patient's floor/unit and/or counseling patient: (1) Hypertension Hypertension type: essential hypertension Qualified Code(s): I10 - Essential (primary) hypertension (2) Acute pancreatitis Acute pancreatitis complication: no infection or necrosis Pancreatitis type: unspecified pancreatitis type Qualified Code(s): K85.90 - Acute pancreatitis without necrosis or infection, unspecified
[2019-05-17] MEDS: LACTATED RINGER'S 1,000 ML IV SCH ×3 (09:19→19:11)
[2019-05-17] MEDS: HYDROmorphone INJ 1 MG/ML SYRINGE IV PRN ×3 (09:46→22:21)
[2019-05-17 09:48] LABS: Chol HDL Ratio 2; Cholesterol 128 mg/dl (0-200); HDL Cholesterol 62 mg/dl; LDL Cholesterol Calculated 51 mg/dl; Triglycerides 77 mg/dl (0-150); VLDL Cholesterol 15 mg/dl
--- NOTE | 2019-05-17 10:37 | Magnetic Resonance Report ---
MRCP CLINICAL HISTORY: Generalized abdominal pain. Pancreatitis. COMPARISON STUDY: Abdominal CT dated 05/17/2019. TECHNIQUE: Abdominal MRCP is performed utilizing various T2-weighted sequences in the axial and coron al planes. 3-D reformats are created and assessed. IV contrast was not administered for this examinat ion. FINDINGS: The gallbladder is surgically absent. There is mild intrahepatic biliary ductal dilatation. The commo n bile duct is dilated, measuring up to 12 mm in diameter. There are no filling defects identified to suggest choledocholithiasis. Pancreas divisum is noted. The pancreatic duct is normal in caliber. The unenhanced liver, spleen, adrenal glands, and kidneys are grossly unremarkable. The pancreas is e nlarged and edematous, with peripancreatic stranding and fluid. The appearance is consistent with acu te pancreatitis. Upper abdominal ascites is noted. The abdominal aorta is normal in caliber. There is no evidence of bowel obstruction. The bony structures are intact as imaged. No pleural effusion is i dentified. IMPRESSION: 1. Findings are consistent with acute pancreatitis. 2. The gallbladder is surgically absent. 3. There is intra and extrahepatic biliary ductal dilatation, with no evidence of choledocholithiasis . 4. Pancreas divisum is incidentally noted. 5. There is upper abdominal ascites. Electronically signed by: Tavo Hernandez M.D. 05/17/2019 10:36 AM
[2019-05-17] MEDS: ONDANSETRON HCL 8 MG in DEXTROSE 5% 50 ML IV PRN (10:40)
[2019-05-17] MEDS: PANTOprazole 40 MG TAB PO SCH (10:59)
[2019-05-17] MEDS ORDERED: GLUCOSE 40% GEL 15 GM TUBE PO PRN (11:18)
[2019-05-17] MEDS ORDERED: CARBOHYDRATES FOR HYPOGLYCEMIA PO PRN (11:18)
[2019-05-17] MEDS ORDERED: GLUCAGON FOR INJ 1 MG VIAL SQ PRN (11:18)
[2019-05-17] MEDS ORDERED: DEXTROSE 50% 50 ML SYRINGE IV PRN (11:18)
[2019-05-17] MEDS ORDERED: GLUCOSE 10 TABS/TUBE PO PRN (11:18)
[2019-05-17] MEDS ORDERED: Nursing to Pharmacy Communication ONE (11:22)
[2019-05-17] MEDS: INSULIN ASPART 100 UNITS/ML 3 ML PEN SC SCH ×3 (12:36→23:56)
[2019-05-17] MEDS ORDERED: LACTATED RINGER'S 1,000 ML IV ONE (16:52)
--- NOTE | 2019-05-17 16:52 | Gastrointestinal Consultation ---
Date of Consultation May 17, 2019 Assessment & Plan (1) Acute pancreatitis: No ETOH, trigs normal, no stones in bile duct. Could be lisinopril so recommend changing her to another antihypertensive, Pancreas divisum can cause this but not much can be done for that. In meantime treat with aggressive IVF LR to maintain urine output 0.5 mg/kg/hour or higher so pancreas sees adequate fluid to reduce risk of necrotiziing pancreatisi. NPO for now. Disussed with nurse number desired for urine output and will bolus 1 liter of LR then resume 250ml/hour after that. History of Present Illness Reason for Consultation: pancreeatitis Requesting Physician: Dr Gurvinder Cerda. Attending Physician: Gurvinder Cerda MD History of Present Illness cc abd pain HPI Noted admit 01/2016 for pancreatisi thought biliary. She has lap melo with IOC (nl IOC) during that admit. No further issues since then Noted colo 2014 polyps, EGD 2017 normal. She developed acute onset of abd pain epi going to back, nausea. CT a/p consistent with pancreatisis, dilated bile duct. Lipase elevatd. LFTS normal. MRCP dilated bile duct but no stones and Pdivisum noted. She does not drink ETOH. Her triglycerides are normal. She is on lisinopril. LR incrased about 1100. I spoke with nurse and see a total of 500 ml out on day shift for 0.25mg/kg/hour. Allergies Allergy/AdvReac Type Severity Reaction Status Date / Time No Known Allergies Allergy Verified 05/17/19 05:33 Home Medications Home Medications Medication Instructions Recorded Confirmed Type lisinopril 20 mg tablet 20 mg PO DAILY #90 tab 03/27/19 05/17/19 History metformin 1,000 mg tablet 1,000 mg PO BID #180 tab 03/27/19 05/17/19 History pantoprazole 40 mg tablet,delayed 40 mg PO DAILY #90 tab 03/27/19 05/17/19 History release atorvastatin 40 mg tablet 40 mg PO HS #90 tab 04/18/19 05/17/19 Rx Patient History Medical History Microalbuminuria (Acute) Internal hemorrhoids (Acute) Hypertension (Acute) Hyperlipidemia (Acute) Fatty liver (Acute) Diverticulosis of colon (Acute) Diabetes mellitus type 2, uncontrolled (Acute) Depression (Acute) Anemia (Acute) Acid reflux disease (Acute) Abdominal pain (Acute) Family History Father Diabetes Hypertension Social History Preferred Language: Latvian Communication Ability: Effective Beliefs That Will Affect Care: None Current Living Situation: Spouse Feels Safe at Home: Yes Smoking Status: Never smoker Hx Alcohol Use: No Hx Substance Use: No Review of Systems Review of Systems: All systems reviewed & are unremarkable except as noted in HPI & below Physical Exam Constitutional: WD/WN, vitals as above Eyes: PERRL, conjunctivae normal, anicteric sclerae ENMT: external ear and nose normal, oropharynx normal Neck: normal visual inspection and trachea midline Respiratory: normal respiratory effort, lungs clear to auscultation Cardiovascular: RRR, no murmur, no edema Gastrointestinal (Abdomen): pos bs, soft, no guarding nor rebound, Neurologic: PERRL, EOMI, accommodation nl, no face palsy, no dysarthria Psychiatric: A+Ox3, euthymic affect Results & Data Vital Signs (Past 12 Hours) Vital Signs Temp Pulse Pulse Pulse Resp BP BP 05/17/19 15:42 36.5 C 86 16 158/69 H 05/17/19 09:00 36.4 C L 101 H 16 154/92 H 05/17/19 06:34 92 H 19 163/108 H 05/17/19 06:05 90 18 145/97 H 05/17/19 05:50 05/17/19 05:09 36.7 C 98 H 18 144/99 H Pulse Ox 05/17/19 15:42 96 05/17/19 09:00 97 05/17/19 06:34 99 05/17/19 06:05 99 05/17/19 05:50 87 L 05/17/19 05:09 98 (1) Acute pancreatitis Acute pancreatitis complication: no infection or necrosis Pancreatitis type: unspecified pancreatitis type Qualified Code(s): K85.90 - Acute pancreatitis without necrosis or infection, unspecified
[2019-05-18] MEDS: LACTATED RINGER'S 1,000 ML IV SCH ×6 (01:16→21:03)
[2019-05-18] MEDS: ONDANSETRON HCL 8 MG in DEXTROSE 5% 50 ML IV PRN (04:15)
[2019-05-18] MEDS: HYDROmorphone INJ 1 MG/ML SYRINGE IV PRN (04:37)
[2019-05-18] MEDS: INSULIN ASPART 100 UNITS/ML 3 ML PEN SC SCH ×5 (06:10→21:04)
[2019-05-18 06:11] LABS: Basophils # (auto) 0.01 K/uL (0-0.2); Basophils % (auto) 0.1 %; Eosinophils % (auto) 1.2 %; Hematocrit (blood only) 34.9 % (37-47); Hemoglobin 11.5 g/dL (12.0-16.0); Immature Granulocytes # (auto) 0.05 K/uL (0.00-0.02); Immature Granulocytes % (auto) 0.3 %; Lymphocytes # (auto) 0.75 K/uL (1.2-3.4); Lymphocytes % (auto) 4.5 %; Mean Corpuscular Volume 93.3 fL (80-100); Mean Platelet Volume 9.8 fL (7.4-10.4); Monocytes # (auto) 0.99 K/uL (0.11-0.59); Neutrophils # (auto) 14.59 K/uL (1.4-6.5); Neutrophils % (auto) 87.9 %; Platelet Count 202 K/uL (130-400); RDW Coefficient of Variation 13.5 % (11.5-14.5); RDW Standard Deviation 45.7 fL (36.4-46.3); Red Blood Count 3.74 M/uL (4.2-5.4); White Blood Count 16.59 K/uL (4.8-10.8)
[2019-05-18 06:27] LABS: INR 1.2 (0.9-1.1); Partial Thromboplastin Ratio 1.1; Partial Thromboplastin Time 30.2 Seconds (21.0-31.0); Prothrombin Time 12.1 Seconds (9.0-12.0)
[2019-05-18 06:51] LABS: Albumin Level 3.2 gm/dl (3.4-5.0); BUN Creatinine Ratio 22.4 (10-20); Bilirubin,Total 1.2 mg/dl (0.2-1); Calcium 7.9 mg/dl (8.5-10.1); Creatinine Clr Calc Pharmacy 110.3 ml/min; Est GFR (African American) 115.5; Est GFR (Non-African American) 99.6; Globulin 3.1 gm/dl (2.5-4.0); Magnesium 0.9 mg/dl (1.8-2.4); Potassium 4.2 mmol/L (3.5-5.1)
[2019-05-18] MEDS: MAGNESIUM SULFATE / D5W 1 GM/100 ML BAG IV SCH ×4 (07:40→10:59)
[2019-05-18] MEDS ORDERED: Nursing to Pharmacy Communication ONE (08:44)
[2019-05-18] MEDS: ACETAMINOPHEN 1,000 MG/100 ML VIAL IV PRN ×2 (08:54→21:03)
[2019-05-18] MEDS: PANTOprazole 40 MG TAB PO SCH (08:58)
[2019-05-18] MEDS: AMLODIPINE BESYLATE 5 MG TAB PO SCH (08:58)
[2019-05-18 14:28] LABS: Total Protein 6.3 gm/dl (6.4-8.2)
--- NOTE | 2019-05-18 15:13 | Gastroenterology Progress Note ---
Date of Service May 18, 2019 Assessment & Plan (1) Acute pancreatitis: clinically improved with no abd pain at present. Lipase better. No ETOH, trigs normal, no stones in bile duct. Could be lisinopril so recommend changing her to another antihypertensive, Pancreas divisum can cause this but not much can be done for that. In meantime treat with aggressive IVF LR to maintain urine output 0.5 mg/kg/hour or higher so pancreas sees adequate fluid to reduce risk of necrotiziing pancreatisi. Continue IV LR at 250 hour for now. elev LFTS--minimal may be from pancreas swelling. I am going off service tomorrow 05/19/[address] Carlos is assuming GI care then. Subjective cc f/u pancreatitis HPI No abd pain at present. Urine output for 24 hours as of 0700 0.7 ml/kg/hour. Per nurse had 450 out today since 0700 not quite 60 ml/hour. Review of Systems Respiratory: no dyspnea Cardiovascular: no chest pain Physical Exam Respiratory: normal respiratory effort, lungs clear to auscultation Cardiovascular: RRR, no murmur, no edema Gastrointestinal (Abdomen): normal bowel sounds, soft, nontender, no hepatosplenomegaly Psychiatric: A+Ox3, euthymic affect Results & Data Vital Signs (Past 12 Hours) Vital Signs Temp Pulse Resp BP BP Pulse Ox 05/18/19 15:07 36.8 C 103 H 20 146/89 H 90 05/18/19 07:32 36.9 C 84 16 118/74 93 05/18/19 05:52 93 05/18/19 05:50 83 L (1) Acute pancreatitis Acute pancreatitis complication: no infection or necrosis Pancreatitis type: unspecified pancreatitis type Qualified Code(s): K85.90 - Acute pancreatitis without necrosis or infection, unspecified
--- NOTE | 2019-05-18 16:44 | Hospitalist Progress Note ---
Date of Service May 18, 2019 Assessment & Plan (1) Acute pancreatitis: Lipase was [address] a/p on 05/17 shows acute pancreatitis without fluid collection. CBD measures up to 10mm at the head of the pancreas. MRCP on 05/17 showed no choledocholithiasis. Lipids normal. Etiology uncertain, but possibly due to lisinopril. - GI consulted - Appreciate recs - Lipase improved to 3000 by 05/18 - Clears; advancing diet slowly - Probably discharge tomorrow if lipase normalizes and tolerating diet. (2) Hypertension: Stopped lisinopril as it can cause pancreatitis, and we don't have an alternative cause at this time. - Switched to amlodipine - Monitor BP (3) Hyperlipidemia: - Continue statin (4) Diabetes mellitus type 2, uncontrolled: - Hold metformin while NPO. - Sliding scale insulin (5) DVT prophylaxis: SCDs - Low DVT risk per admission calculator Subjective Significantly improved abdominal pain. Some hip pain. Hungry. Review of Systems Review of Systems: All systems reviewed & are unremarkable except as noted in HPI & below Physical Exam Constitutional: WD/WN, vitals as above Eyes: EOM intact bilaterally; no conjunctival abnormality ENMT: external ear and nose normal, oropharynx normal Neck: trachea midline, no thyromegaly normal visual inspection Respiratory: normal respiratory effort, lungs clear to auscultation no respiratory distress Cardiovascular: RRR, no murmur, no edema Gastrointestinal (Abdomen): Inspection/Auscultation: abdomen normal to inspection; abdomen not distended Percussion/Palpation: abdomen soft; abdomen nontender (Epigastric), no guarding and abdomen not rigid Musculoskeletal: no cyanosis or clubbing, extremities motor strength 5/5 Skin: no rashes, warm and dry Neurologic: moves all extremities and awake Psychiatric: Orientation: alert, oriented to person and cooperative Results & Data Vital Signs (Past 12 Hours) Vital Signs Temp Pulse Resp BP BP Pulse Ox 05/18/19 15:07 36.8 C 103 H 20 146/89 H 90 05/18/19 07:32 36.9 C 84 16 118/74 93 05/18/19 05:52 93 05/18/19 05:50 83 L PG Care Time/CCT Total # of Minutes Spent Total Time Spent with Patient: Total time spent is greater than 50% in coordination of care (as documented) at patient's floor/unit and/or counseling patient: (1) Acute pancreatitis Acute pancreatitis complication: no infection or necrosis Pancreatitis type: unspecified pancreatitis type Qualified Code(s): K85.90 - Acute pancreatitis without necrosis or infection, unspecified (2) Hypertension Hypertension type: essential hypertension Qualified Code(s): I10 - Essential (primary) hypertension
[2019-05-19] MEDS: LACTATED RINGER'S 1,000 ML IV SCH ×4 (01:08→13:46)
[2019-05-19 06:20] LABS: Eosinophils # (auto) 0.01 K/uL (0-0.5); Eosinophils % (auto) 0.1 %; Hematocrit (blood only) 32.1 % (37-47); Hemoglobin 10.7 g/dL (12.0-16.0); Immature Granulocytes # (auto) 0.04 K/uL (0.00-0.02); Immature Granulocytes % (auto) 0.3 %; Lymphocytes % (auto) 5.1 %; Mean Corpuscular Hgb Conc 33.3 g/dL (32-36); Mean Corpuscular Volume 90.2 fL (80-100); Mean Platelet Volume 9.5 fL (7.4-10.4); Monocytes # (auto) 0.65 K/uL (0.11-0.59); Monocytes % (auto) 4.7 %; Neutrophils # (auto) 12.29 K/uL (1.4-6.5); Neutrophils % (auto) 89.8 %; Platelet Count 186 K/uL (130-400); RDW Coefficient of Variation 13.2 % (11.5-14.5); RDW Standard Deviation 43.9 fL (36.4-46.3); Red Blood Count 3.56 M/uL (4.2-5.4); White Blood Count 13.69 K/uL (4.8-10.8)
[2019-05-19 06:53] LABS: Albumin Level 2.9 gm/dl (3.4-5.0); BUN Creatinine Ratio 13.4 (10-20); Calcium 8.6 mg/dl (8.5-10.1); Creatinine Clr Calc Pharmacy 146.1 ml/min; Est GFR (African American) 126.7; Est GFR (Non-African American) 109.3; Potassium 3.4 mmol/L (3.5-5.1)
[2019-05-19 06:54] LABS: Albumin Globulin Ratio 0.9 (0.9-2); Bilirubin,Total 1.3 mg/dl (0.2-1); Globulin 3.2 gm/dl (2.5-4.0); Total Protein 6.1 gm/dl (6.4-8.2)
[2019-05-19] MEDS: AMLODIPINE BESYLATE 5 MG TAB PO SCH (08:11)
[2019-05-19] MEDS: PANTOprazole 40 MG TAB PO SCH (08:11)
[2019-05-19] MEDS: INSULIN ASPART 100 UNITS/ML 3 ML PEN SC SCH ×4 (09:14→21:13)
[2019-05-19] MEDS ORDERED: POTASSIUM CHLORIDE 20 MEQ TABCR PO STA (09:14)
--- NOTE | 2019-05-19 13:15 | Progress Note ---
DATE: 05/19/2019 SUBJECTIVE: The patient has acute pancreatitis which is recurrent with probable etiology that is pancreas divisum. She has no other risk factors at this time. She is still having a little bit of abdominal pain, particularly in the left flank area. She is eating clear liquids and tolerating them. The patient is down to 100 mL an hour of fluids. Her fluid balance over the last 24 hours is 7152 in and 3075 out with a positive balance of a little over 4 liters. OBJECTIVE: Blood pressure is 167/85, pulse 98. Her lisinopril was stopped as a potential etiologic agent and she switched to Norvasc, which is not controlling her blood pressure quite as well. Part of that may be from her IV fluids though. Lipase is still elevated today at 800. Albumin is slightly low at 2.9. Abdomen shows a right lower quadrant scar and laparoscopic cholecystectomy scars, slight tenderness in the left mid abdomen. IMPRESSION: The patient has recurrent pancreatitis, probably from the pancreas divisum. At this point, I would continue to work on controlling her blood pressure. Her IV fluids are adequate at the current level at 100 an hour. Once her lipase has reduced and she is feeling better, we can advance her diet to a low fat. We will continue to follow her during her hospital stay.
--- NOTE | 2019-05-19 17:21 | Hospitalist Progress Note ---
Date of Service May 19, 2019 Assessment & Plan (1) Acute pancreatitis: Lipase was 8900 on admission and is now down to 800, LFTs are normal except mildly elevated total bilirubin at 1.3. CT a/p on 05/17 shows acute pancreatitis without fluid collection. CBD measures up to 10mm at the head of the pancreas. MRCP on 05/17 showed no choledocholithiasis. Lipids normal. Does have pancreas divisum, but GI also thinks this could be possibly due to lisinopril use and this has been discontinued. Blood pressures are elevated today and has some mild hypoxia with decreased lung sounds-likely getting volume overloaded Leukocytosis is improving down to 13 today - GI consulted - Appreciate recs -Continue liquids diet -Decrease IV fluids to 100 mL's per hour -Follow lipase and LFTs in the morning (2) Hypertension: Stopped lisinopril as it can cause pancreatitis - Switched to amlodipine 5 mg daily Blood pressure still quite elevated today but could be secondary to aggressive IV fluids -Decrease IV fluids 100 mL's per hour and can likely discontinue tomorrow if advance diet - Monitor BP (3) Hyperlipidemia: - Continue statin (4) Diabetes mellitus type 2, uncontrolled: Hemoglobin A 1C 7.1% in [id number] Blood glucose here is very well controlled as well -Continue to hold metformin while NPO. -Continue sliding scale insulin (5) Abnormal ECG: Initial ECG showed possible junctional accelerated rhythm, remains tachycardic here in the 90s Repeat ECG today shows normal sinus rhythm (6) Hypokalemia: Potassium mildly low today due to decreased p.o. intake -Replace with potassium chloride 40 M EQ p.o. x1 now -Follow BMP in the morning (7) DVT prophylaxis: SCDs - Low DVT risk per admission calculator Disposition-continued stay for abdominal pain and elevated lipase, slowly improving, likely can advance diet to low-fat tomorrow and discharged home Subjective Patient still reports feeling "lousy." Her epigastric abdominal pain however is resolved, but now has some abdominal pain on the sides of her abdomen that she thinks might be from laying in the bed for so long. Denies nausea and is tolerating a liquids diet. Denies chest pain or shortness of breath, denies lig htheadedness or headache. Blood pressures remained elevated today and IV fluids were decreased Patient reports she is making plenty of urine Review of Systems Review of Systems: All systems reviewed & are unremarkable except as noted in HPI & below Physical Exam Constitutional: WD/WN, vitals as above (Sitting in a chair at the bedside) Eyes: PERRL, conjunctivae normal, anicteric sclerae ENMT: external ear and nose normal, oropharynx normal Neck: trachea midline, no thyromegaly Respiratory: normal respiratory effort; no labored breathing Auscultation: + diminished lung sounds (At the bases bilaterally); no crackles, no rhonchi and no wheezes Cardiovascular: RRR, no murmur, no edema Gastrointestinal (Abdomen): normal bowel sounds, soft, nontender, no hepatosplenomegaly Musculoskeletal: Extremities: extremities normal to inspection; no cyanosis and no clubbing Skin: no rashes, warm and dry Neurologic: moves all extremities and awake; no focal motor deficits Psychiatric: A+Ox3, euthymic affect Results & Data Vital Signs (Past 12 Hours) Vital Signs Temp Pulse Pulse Resp BP BP Pulse Ox 05/19/19 15:10 36.5 C 96 H 16 164/92 H 90 05/19/19 11:28 167/85 H 90 05/19/19 09:15 91 05/19/19 07:52 37.3 C 98 H 18 160/100 H 88 L Laboratory Results 05/19/19 05/19/19 05/19/19 Range/Units 20:47 16:57 11:57 WBC (4.8-10.8) K/uL RBC (4.2-5.4) M/uL Hgb (12.0-16.0) g/dL Hct (37-47) % MCV (80-100) fL MCH (25-34) pg MCHC (32-36) g/dL RDW Std Deviation (36.4-46.3) fL RDW Coeff of Carlos Alberto (11.5-14.5) % Plt Count (130-400) K/uL MPV (7.4-10.4) fL Immature Gran % (Auto) % Neut % (Auto) % Lymph % (Auto) % Ripley % (Auto) % Eos % (Auto) % Baso % (Auto) % Immature Gran # (Auto) (0.00-0.02) K/uL Neut # (Auto) (1.4-6.5) K/uL Lymph # (Auto) (1.2-3.4) K/uL Ripley # (Auto) (0.11-0.59) K/uL Eos # (Auto) (0-0.5) K/uL Baso # (Auto) (0-0.2) K/uL Sodium (136-145) mmol/L Potassium (3.5-5.1) mmol/L Chloride (98-107) mmol/L Carbon Dioxide (21-32) mmol/L Anion Gap (3-11) BUN (7-18) mg/dl Creatinine (0.6-1.2) mg/dl Est Cr Clr Drug Dosing ml/min Est GFR ( Amer) Est GFR (Non-Af Amer) BUN/Creatinine Ratio (10-20) Glucose (70-99) mg/dl POC Glucose 168 H 125 H 157 H (70-99) Calcium (8.5-10.1) mg/dl Magnesium (1.8-2.4) mg/dl Total Bilirubin (0.2-1) mg/dl AST (15-37) U/L ALT (12-78) U/L Alkaline Phosphatase (45-117) U/L Total Protein (6.4-8.2) gm/dl Albumin (3.4-5.0) gm/dl Globulin (2.5-4.0) gm/dl Albumin/Globulin Ratio (0.9-2) Lipase (73-393) U/L 05/19/19 05/19/19 05/19/19 Range/Units 08:07 05:52 05:52 WBC (4.8-10.8) K/uL RBC (4.2-5.4) M/uL Hgb (12.0-16.0) g/dL Hct (37-47) % MCV (80-100) fL MCH (25-34) pg MCHC (32-36) g/dL RDW Std Deviation (36.4-46.3) fL RDW Coeff of Carlos Alberto (11.5-14.5) % Plt Count (130-400) K/uL MPV (7.4-10.4) fL Immature Gran % (Auto) % Neut % (Auto) % Lymph % (Auto) % R[place] % (Auto) % Eos % (Auto) % Baso % (Auto) % Immature Gran # (Auto) (0.00-0.02) K/uL Neut # (Auto) (1.4-6.5) K/uL Lymph # (Auto) (1.2-3.4) K/uL Ripley # (Auto) (0.11-0.59) K/uL Eos # (Auto) (0-0.5) K/uL Baso # (Auto) (0-0.2) K/uL Sodium 138 (136-145) mmol/L Potassium 3.4 L D (3.5-5.1) mmol/L Chloride 100 (98-107) mmol/L Carbon Dioxide 30 (21-32) mmol/L Anion Gap 8.0 (3-11) BUN 5 L D (7-18) mg/dl Creatinine 0.40 L (0.6-1.2) mg/dl Est Cr Clr Drug Dosing 146.1 ml/min Est GFR ( Amer) 126.7 Est GFR (Non-Af Amer) 109.3 BUN/Creatinine Ratio 13.4 (10-20) Glucose 139 H (70-99) mg/dl POC Glucose 128 H (70-99) Calcium 8.6 (8.5-10.1) mg/dl Magnesium 1.6 L (1.8-2.4) mg/dl Total Bilirubin 1.3 H (0.2-1) mg/dl AST 23 (15-37) U/L ALT 26 (12-78) U/L Alkaline Phosphatase 63 (45-117) U/L Total Protein 6.1 L (6.4-8.2) gm/dl Albumin 2.9 L (3.4-5.0) gm/dl Globulin 3.2 (2.5-4.0) gm/dl Albumin/Globulin Ratio 0.9 (0.9-2) Lipase 800 H (73-393) U/L 05/19/19 Range/Units 05:52 WBC 13.69 H (4.8-10.8) K/uL RBC 3.56 L (4.2-5.4) M/uL Hgb 10.7 L (12.0-16.0) g/dL Hct 32.1 L (37-47) % MCV 90.2 (80-100) fL MCH 30.1 (25-34) pg MCHC 33.3 (32-36) g/dL RDW Std Deviation 43.9 (36.4-46.3) fL RDW Coeff of Carlos Alberto 13.2 (11.5-14.5) % Plt Count 186 (130-400) K/uL MPV 9.5 (7.4-10.4) fL Immature Gran % (Auto) 0.3 % Neut % (Auto) 89.8 % Lymph % (Auto) 5.1 % Ripley % (Auto) 4.7 % Eos % (Auto) 0.1 % Baso % (Auto) 0.0 % Immature Gran # (Auto) 0.04 H (0.00-0.02) K/uL Neut # (Auto) 12.29 H (1.4-6.5) K/uL Lymph # (Auto) 0.70 L (1.2-3.4) K/uL Ripley # (Auto) 0.65 H (0.11-0.59) K/uL Eos # (Auto) 0.01 (0-0.5) K/uL Baso # (Auto) 0.00 (0-0.2) K/uL Sodium (136-145) mmol/L Potassium (3.5-5.1) mmol/L Chloride (98-107) mmol/L Carbon Dioxide (21-32) mmol/L Anion Gap (3-11) BUN (7-18) mg/dl Creatinine (0.6-1.2) mg/dl Est Cr Clr Drug Dosing ml/min Est GFR ( Amer) Est GFR (Non-Af Amer) BUN/Creatinine Ratio (10-20) Glucose (70-99) mg/dl POC Glucose (70-99) Calcium (8.5-10.1) mg/dl Magnesium (1.8-2.4) mg/dl Total Bilirubin (0.2-1) mg/dl AST (15-37) U/L ALT (12-78) U/L Alkaline Phosphatase (45-117) U/L Total Protein (6.4-8.2) gm/dl Albumin (3.4-5.0) gm/dl Globulin (2.5-4.0) gm/dl Albumin/Globulin Ratio (0.9-2) Lipase (73-393) U/L PG Care Time/CCT Total # of Minutes Spent Total Time Spent with Patient: Total time spent is greater than 50% in coordination of care (as documented) at patient's floor/unit and/or counseling patient: (1) Hypertension Hypertension type: essential hypertension Qualified Code(s): I10 - Essential (primary) hypertension (2) Acute pancreatitis Acute pancreatitis complication: no infection or necrosis Pancreatitis type: unspecified pancreatitis type Qualified Code(s): K85.90 - Acute pancreatitis without necrosis or infection, unspecified
[2019-05-19] MEDS: MAGNESIUM SULFATE / D5W 1 GM/100 ML BAG IV SCH ×2 (17:23→18:23)
[2019-05-20] MEDS: LACTATED RINGER'S 1,000 ML IV SCH ×2 (01:09→11:29)
[2019-05-20 06:59] LABS: Basophils # (auto) 0.01 K/uL (0-0.2); Basophils % (auto) 0.1 %; Eosinophils # (auto) 0.01 K/uL (0-0.5); Eosinophils % (auto) 0.1 %; Immature Granulocytes # (auto) 0.06 K/uL (0.00-0.02); Immature Granulocytes % (auto) 0.4 %; Lymphocytes # (auto) 0.91 K/uL (1.2-3.4); Lymphocytes % (auto) 6.7 %; Mean Corpuscular Hgb Conc 33.3 g/dL (32-36); Mean Corpuscular Volume 91.2 fL (80-100); Mean Platelet Volume 9.1 fL (7.4-10.4); Monocytes # (auto) 0.71 K/uL (0.11-0.59); Monocytes % (auto) 5.2 %; Neutrophils # (auto) 11.94 K/uL (1.4-6.5); Neutrophils % (auto) 87.5 %; Platelet Count 189 K/uL (130-400); RDW Coefficient of Variation 13.3 % (11.5-14.5); RDW Standard Deviation 44.6 fL (36.4-46.3); Red Blood Count 3.29 M/uL (4.2-5.4); White Blood Count 13.64 K/uL (4.8-10.8)
[2019-05-20 07:48] LABS: Albumin Globulin Ratio 0.9 (0.9-2); Albumin Level 2.9 gm/dl (3.4-5.0); BUN Creatinine Ratio 10.1 (10-20); Bilirubin,Total 0.9 mg/dl (0.2-1); Calcium 8.7 mg/dl (8.5-10.1); Creatinine Clr Calc Pharmacy 142.6 ml/min; Est GFR (African American) 125.7; Est GFR (Non-African American) 108.4; Globulin 3.2 gm/dl (2.5-4.0); Magnesium 1.5 mg/dl (1.8-2.4); Potassium 3.4 mmol/L (3.5-5.1); Total Protein 6.1 gm/dl (6.4-8.2)
[2019-05-20] MEDS: AMLODIPINE BESYLATE 5 MG TAB PO SCH (08:13)
[2019-05-20] MEDS: PANTOprazole 40 MG TAB PO SCH (08:13)
[2019-05-20] MEDS: INSULIN ASPART 100 UNITS/ML 3 ML PEN SC SCH ×3 (08:46→18:19)
[2019-05-20] MEDS ORDERED: POTASSIUM CHLORIDE 20 MEQ TABCR PO STA (15:44)
--- NOTE | 2019-05-20 16:12 | Discharge Summary ---
Date of Service May 20, 2019 Admission HPI Per Admitting Provider 64-year-old female with a history of diabetes and hypertension who presents with pancreatitis. She had one episode of pancreatitis 3 to 4 years ago after her cholecystectomy which she reports is similar in the pain and presentation to this presentation. She reports that approximately 4 PM she has sudden onset of sharp epigastric pain rating through to the back accompanied by nausea and vomiting. Some diaphoresis, but no fevers or chills. No shortness of breath, headache, changes in bowel or bladder continence. Principal Diagnosis Acute pancreatitis Discharge Exam Constitutional WD/WN, vitals as above Eyes PERRL, conjunctivae normal, anicteric sclerae ENMT external ear and nose normal, oropharynx normal Neck trachea midline, no thyromegaly Respiratory normal respiratory effort, lungs clear to auscultation normal respiratory effort; no labored breathing Auscultation: + diminished lung sounds (At the bases bilaterally); no crackles, no rhonchi and no wheezes Cardiovascular RRR, no murmur, no edema Gastrointestinal (Abdomen) normal bowel sounds, soft, nontender, no hepatosplenomegaly Musculoskeletal Extremities: extremities normal to inspection; no cyanosis and no clubbing Skin no rashes, warm and dry Neurologic moves all extremities and awake; no focal motor deficits Psychiatric A+Ox3, euthymic affect Discharge Data Allergies Allergy/AdvReac Type Severity Reaction Status Date / Time No Known Allergies Allergy Verified 05/17/19 05:33 Consultations Gastroenterology Ordered Studies 05/17/19 05:21 CT abd pelvis IV con only Urgent 05/17/19 10:14 MR MRCP Stat Hospital Course (1) Acute pancreatitis: Lipase was 8900 on admission and is now down to 200, LFTs are normal except mildly elevated total bilirubin at 1.3 which is now normal, ALk phos mildly elevated but improved. CT a/p on 05/17 shows acute pancreatitis without fluid collection. CBD measures up to 10mm at the head of the pancreas. MRCP on 05/17 showed no choledocholithiasis. Lipids normal. Does have pancreas divisum, but GI also thinks this could be possibly due to lisinopril use and this has been discontinued. Leukocytosis is improved but stable at 13 today, likely secondary to residual inflammation - GI consulted - Appreciate recs -had bowel rest and then advanced to low fat and tolerated -treated with aggressive IVFs and pain control prn Follow up with PCP after discharge (2) Hypertension: Stopped lisinopril as it can cause pancreatitis - Switched to amlodipine 5 mg daily Blood pressure still elevated today but could be secondary to aggressive IV fluids which are now stopped - Monitor BP as outpt (3) Hyperlipidemia: - Continue statin (4) Diabetes mellitus type 2, uncontrolled: Hemoglobin A 1C 7.1% in [id number] Blood glucose here is very well controlled as well -held metformin while here, can restart on discharge -received SSI while here (5) Abnormal ECG: Initial ECG showed possible junctional accelerated rhythm Repeat ECG shows normal sinus rhythm (6) Hypokalemia: Potassium mildly low today due to decreased p.o. intake -Replaced with potassium chloride 40 M EQ p.o. x1 now Should resolved after advances diet (7) Hypomagnesemia: Severely low at one point at 0.9, now improved but remains mildly low, replaced with IV Magnesium Secondary to poor po intake and should improve with increased po intake (8) DVT prophylaxis: SCDs - Low DVT risk per admission calculator Disposition-stable for dc to home Total Time Total Time Spent Total Time Spent (In Minutes): >30 min Total Time Includes: Examination of the Patient, Discharge Planning, Medication Reconciliation and Communication With Other Providers (GI) Discharge Plan Discharge Items Patient Disposition: Home - Self-Care Reason For Visit: PANCREATITIS Discharge Diagnosis: Acute pancreatitis Condition: Good Discharge Goals: Decrease discomfort, Diagnostic testing, Improve disease control, Learn about illness and Therapeutic intervention Activity: Resume your previous activity Bathing: No limitations Exercise/Sports: Gradually increase as tolerated Non-emergency contact: Primary Care Provider Call non-emergency contact if: you have any medication questions, your symptoms worsen, your pain is not controlled, your pain is worsening, your pain is unusual for you and your temperature is above 100.5 Follow-up/Referrals: Stephen Adhikari MD [Primary Care Provider] - 05/28/19 2:30 pm (Please, follow up with Dr. Adhikari on SundayMay 28 at 2:30 pm. *If you need to change this appointment, call the office at [phone].) Diet: Carb Consistent or DM2 and Low Fat Addtl Provider Instructions: You were admitted for recurrent acute pancreatitis. You had improvement with bowel rest and IV fluids, pain meds. Please follow a low fat and low carbohydrate diet. If you have recurrence of severe pain, please let your doctor know. There is a small possibility that the lisinopril contributed to your pancreatitis, but you also have an anatomical variant of your pancreas called Pancreas Divisum which causes pancreatitis. Your lisinopril was stopped and was replaced with amlodipine 5mg once daily for your blood pressure. Please follow up with your PCP as scheduled. Prescriptions: New amlodipine [Norvasc] 5 mg Tablet 5 mg PO QAM Qty: 30 RF: 0 Continued atorvastatin 40 mg tablet 40 mg PO HS Qty: 90 RF: 1 pantoprazole 40 mg tablet,delayed release (DR/EC) 40 mg PO DAILY Qty: 90 RF: 0 metformin 1,000 mg tablet 1,000 mg PO BID Qty: 180 RF: 0 Discontinued lisinopril 20 mg tablet 20 mg PO DAILY Qty: 90 RF: 0 Stand-Alone Forms: Call Back Authorization, [facility] Discharge Orders: Discharge Order (Routine); Ordered 05/20/19 Ordered By: Margarita Summers Admission Data Admit Date/Time: 05/17/19 07:57 Attending Provider: Margarita Summers Admit Provider: Gurvinder Cerda Primary Care Provider: Stephen Adhikari Other Providers: Kevin Mullins ; Gurvinder Cerda Service: Medical Other Pending Studies at Discharge: No
[2019-05-20] MEDS: MAGNESIUM SULFATE / D5W 1 GM/100 ML BAG IV SCH ×2 (16:30→17:38)
== END 2019-05-20 19:34 | disposition home or self-care (01) | DRG 439 ==
LOC: ED 05:06 → SUATTDRO 07:57 → 3N 07:57

== ENCOUNTER 2022-11-25 09:42 | Inpatient (IN) ==
--- NOTE | 2022-11-25 09:51 | Emergency Department Note ---
Impression & Plan Closed hip fracture, Fall, Hyperglycemia ED Provider Note NAME: HERON GIFFORD AGE: 67 SEX: F : 1955 ARRIVES VIA: Walk-In INFORMANT: Patient, ED PROVIDER(S): Edmond Jennings MD CHIEF COMPLAINT: Hip pain, fall MEDICAL DECISION MAKING: Patient presents due to concern for hip pain. Blood work was obtained IV was established and the patient was given IV morphine. Patient did have blood work completed along with an x-ray of the right hip and pelvis. Did note that the patient's right lower extremity was shortened compared to the left with the patient believes that this is chronic in nature. Patient has a normal white count hemoglobin and platelet count. Kidney function unremarkable. Mildly trace elevation in bilirubin at 1.1 but otherwise unremarkable LFTs. Patient's BSG is elevated at 193. Patient is not in DKA with a normal bicarb and anion gap. Patient CT head is negative. Patient's hip and pelvis x-ray does show a right- sided hip fracture. I did speak with on-call orthopedics Dr. Braden in cons ultation for the patient's hip fracture. I also did convey the findings to the patient who is comfortable with the plan of care. I did speak the on-call hospitalist Dr. Perkins and the patient was admitted to the medicine service. Prior /Outside records reviewed: I did review the patient's primary care visit with Dr. Adhikari from May 2022. Differential diagnosis: Fracture, subluxation, dislocation, contusion, ligamentous injury, neurovascular, compartment syndrome, rhabdomyolysis, as well as other pathologies. Diagnostics, as interpreted by me: ECG: Normal sinus rhythm, rate of 66 normal intervals normal axis no ST elevations. Cardiac monitoring: An order was placed for continuous cardiac monitoring. The monitor shows a rate of 72 with sinus rhythm. Patient was placed on pulse oximetry Medical decision rules: none Imaging studies: See below HPI: Patient presents due to concern for right hip pain. 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 Patient states that she was able to get up and walk thereafter but this morning she had significant discomfort and was unable to ambulate without significant difficulty and pain. Patient describes it as a pain over the proximal aspect of the right hip and thigh area. Patient does not take any blood thinning medications. The patient did have head strike last evening but no LOC. Patient denies any headache or neck pain no numbness tingling or focal weakness. The patient does have a prior history of a tibial plateau repair completed by Dr. German with [facility] orthopedics approximately 2 years ago. Patient did take some tramadol this morning but this did not improve her symptoms. PAST MEDICAL HISTORY: See Below PAST SURGICAL HISTORY: See Below SOCIAL HISTORY: See Below HOME MEDICATIONS: See Below ALLERGIES: See Below VITALS: See Below PHYSICAL EXAMINATION: GENERAL: NAD, wearing a mask, non-toxic. EYE EXAM: Normal conjunctiva. PERRL, no anisocoria and EOM's grossly intact w/o pain. NECK: Supple, no nuchal rigidity, no adenopathy, non-tender. No signs of meningismus. FROM of the neck with good chin to chest and neck extension. No stridor. LUNGS: Clear to auscultation. Normal chest wall mechanics. HEART: NSR, no MRG. ABDOMEN: Abdomen soft, non-tender, normo-active bowel sounds, no masses, no rebound or guarding. BACK: No CVA TTP. SKIN: No rashes and no bruising. UPPER EXTREMITIES: Upper extremities are grossly normal. LOWER EXTREMITIES: Right extremity with decreased ability to flex at the hip, no significant pain with passive range of motion, no significant TTP to the right hip with palpation, right lower extremity slightly shortened compared to the left. Compartments are soft and neurovascular intact distally but with decreased range of motion secondary to pain. NEURO EXAM: A&O x3, cranial nerves II-XII grossly intact, normal speech, moves all 4 extremities. Past Med/Surg History Medical History Acid reflux disease Depression Diabetes mellitus type 2, uncontrolled Diverticulosis of colon Fatty liver Hyperlipidemia Hypertension Hypoalbuminemia Internal hemorrhoids Microalbuminuria Proteinuria Surgical History History of appendectomy History of cholecystectomy Family History Father Diabetes Hypertension Stroke Hyperlipidemia associated with type 2 diabetes mellitus Mother Dementia Denies family history of Ovarian cancer Prostate cancer Myocardial infarction Breast cancer Colorectal cancer Social History Smoking Status: Never smoker Second Hand Exposure: No; Hx Alcohol Use: No Hx Substance Use: No Preferred Language: Mexican Communication Ability: Effective Visual Impairment: No Limitations Hearing Ability: Normal Beliefs That Will Affect Care: None marital status: Current Living Situation: Spouse current occupational status: retired 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 Feels Safe at Home: Yes Childhood Exposure to Second-Hand Smoke: No caffeine: Yes Dental Care, Regularly: No Physical Activity Frequency: Daily Seatbelt Use: always Sunscreen Use: No Assistive Devices: Glasses Allergies Allergies Allergy/AdvReac Type Severity Reaction Status Date / Time No Known Allergies Allergy Verified 06/19/22 13:31 Home Meds Home Medications Medication Instructions Recorded Confirmed aspirin 81 mg tablet,delayed 81 mg PO QAM 05/28/19 06/19/22 release (Adult Low Dose Aspirin) Previous Rx's Medication Instructions Recorded metformin 1,000 mg tablet 1,000 mg PO BID #180 tabs 10/26/21 amlodipine 10 mg tablet 10 mg PO QAM #30 tabs 06/19/22 trazodone 50 mg tablet 50 mg PO DAILY #30 tabs 06/19/22 atorvastatin 40 mg tablet 40 mg PO HS #90 tabs 08/28/22 Results & Data (ED) Vital Signs Vital Signs - 24 hr 11/25/22 09:43 11/25/22 14:26 Temperature 36.4 C L Temperature Source Temporal Artery Scan Pulse Rate 70 78 Respiratory Rate 20 16 Respiratory Effort / Characteristics Non-Labored Spontaneous Respiratory Depth Normal Blood Pressure 176/95 H 152/84 H Blood Pressure Mean 122 Pulse Oximetry 98 98 Oxygen Delivery Method Room Air Room Air Sepsis Recent Fever Within 48 Hours No Sepsis New/Unexplained Change in Mental Status No Sepsis Action Taken by Nursing No Action Required Home Medications Current Medication List: was personally reviewed by me Laboratory Data Attestation: I reviewed the patient's lab results. 11/25/22 10:15 11/25/22 10:15 Lab Results 11/25/22 11/25/22 11/25/22 Range/Units 10:15 10:15 10:15 WBC 9.76 (4.8-10.8) K/ul RBC 4.11 L (4.20-5.40) M/uL Hgb 12.4 (12.0-16.0) g/dl Hct 36.7 L (37.0-47.0) % MCV 89.3 (80.0-100.0) fL MCH 30.2 (25.0-34.0) pg MCHC 33.8 (32.0-36.0) g/dL RDW Std Deviation 41.0 (36.4-46.3) fL RDW Coeff of Carlos Alberto 12.6 (11.5-14.5) % Plt Count 214 (130-400) K/uL MPV 9.7 (9.4-12.4) fL Immature Gran % (Auto) 0.3 % Neut % (Auto) 82.0 % Lymph % (Auto) 12.0 % [place] % (Auto) 5.1 % Eos % (Auto) 0.4 % Baso % (Auto) 0.2 % Neut # (Auto) 8.00 H (1.40-6.50) K/uL Lymph # (Auto) 1.17 L (1.2-3.4) K/uL [place] # (Auto) 0.50 (0.11-0.59) K/uL Eos # (Auto) 0.04 (0-0.50) K/uL Baso # (Auto) 0.02 (0-0.2) K/uL Immature Gran # (Auto) 0.03 (0.01-0.20) K/uL PT 10.9 (9.0-12.0) Seconds INR 1.0 (0.9-1.1) APTT 27.3 (21.0-31.0) Seconds PTT Ratio 1.0 Sodium 139 (136-145) mmol/L Potassium 3.7 (3.5-5.1) mmol/L Chloride 102 (98-107) mmol/L Carbon Dioxide 30 (21-32) mmol/L Anion Gap 7 (3-11) BUN 10 (6-23) mg/dl Creatinine 0.53 L (0.6-1.2) mg/dl Est Cr Clr Drug Dosing 104.0 ml/min Est GFR ( Amer) 113.1 ml/min Est GFR (Non-Af Amer) 97.6 ml/min BUN/Creatinine Ratio 18.9 (10-20) Glucose 193 H (70-99(Fasting)) mg/dl Calcium 9.9 (8.5-10.1) mg/dl Total Bilirubin 1.1 H (0.2-1.0) mg/dl AST 22 (13-39) U/L ALT 25 (7-52) U/L Alkaline Phosphatase 64 (34-104) U/L Total Protein 7.5 (6.0-8.3) gm/dl Albumin 4.8 (3.4-5.0) gm/dl Globulin 2.7 (2.5-4.0) gm/dl Albumin/Globulin Ratio 1.8 (0.9-2) SARS-CoV-2, RNA, NAAT (NEGATIVE) 11/25/22 Range/Units 12:55 WBC (4.8-10.8) K/ul RBC (4.20-5.40) M/uL Hgb (12.0-16.0) g/dl Hct (37.0-47.0) % MCV (80.0-100.0) fL MCH (25.0-34.0) pg MCHC (32.0-36.0) g/dL RDW Std Deviation (36.4-46.3) fL RDW Coeff of Carlos Alberto (11.5-14.5) % Plt Count (130-400) K/uL MPV (9.4-12.4) fL Immature Gran % (Auto) % Neut % (Auto) % Lymph % (Auto) % [place] % (Auto) % Eos % (Auto) % Baso % (Auto) % Neut # (Auto) (1.40-6.50) K/uL Lymph # (Auto) (1.2-3.4) K/uL [place] # (Auto) (0.11-0.59) K/uL Eos # (Auto) (0-0.50) K/uL Baso # (Auto) (0-0.2) K/uL Immature Gran # (Auto) (0.01-0.20) K/uL PT (9.0-12.0) Seconds INR (0.9-1.1) APTT (21.0-31.0) Seconds PTT Ratio Sodium (136-145) mmol/L Potassium (3.5-5.1) mmol/L Chloride (98-107) mmol/L Carbon Dioxide (21-32) mmol/L Anion Gap (3-11) BUN (6-23) mg/dl Creatinine (0.6-1.2) mg/dl Est Cr Clr Drug Dosing ml/min Est GFR ( Amer) ml/min Est GFR (Non-Af Amer) ml/min BUN/Creatinine Ratio (10-20) Glucose (70-99(Fasting)) mg/dl Calcium (8.5-10.1) mg/dl Total Bilirubin (0.2-1.0) mg/dl AST (13-39) U/L ALT (7-52) U/L Alkaline Phosphatase (34-104) U/L Total Protein (6.0-8.3) gm/dl Albumin (3.4-5.0) gm/dl Globulin (2.5-4.0) gm/dl Albumin/Globulin Ratio (0.9-2) SARS-CoV-2, RNA, NAAT NEGATIVE (NEGATIVE) Administered Medications Discontinued Medications Acetaminophen (Acetaminophen 500 Mg Tab) 1,000 mg PO NOW STA Stop: 11/25/22 10:00 Last Admin: 11/25/22 10:23 Dose: 1,000 mg Documented By: KVNG Diphenhydramine HCl (Diphenhydramine 50 Mg/Ml Vial) 12.5 mg IV NOW STA Stop: 11/25/22 13:13 Last Admin: 11/25/22 13:27 Dose: 12.5 mg Documented By: KVNG Morphine Sulfate (Morphine Sulfate 4 Mg/Ml 1 Ml Carp\Vial) 4 mg IV NOW STA Stop: 11/25/22 10:00 Last Admin: 11/25/22 10:23 Dose: 4 mg Documented By: KVNG Imaging Data Radiologist's Impression: Head CT 11/25/22 09:58 CT head/brain wo con CLINICAL HISTORY: 67 years-old Female with fall, headstrike. Acute head trauma status post fall TECHNIQUE: Multiple axial CT images of the head were obtained without contrast. A dose lowering technique was utilized adhering to the principles of ALARA. CT DOSE: 614.27 mGy.cm COMPARISON: None. FINDINGS: No acute intracranial hemorrhage, midline shift, intracranial mass, hydrocephalus, territorial ischemia or abnormal extra-axial collection. Mild involutional changes. White matter hypodensities suggestive of chronic microvascular ischemic disease. The calvarium is intact. The paranasal sinuses, mastoid air cells, and middle ear cavities are clear. IMPRESSION: No acute intracranial abnormality or calvarial fracture. ACT 112: Negative or not required by law. The above report was generated using voice recognition software. It may contain grammatical, syntax or spelling errors. Electronically signed by: Wilman Philip M.D. 11/25/2022 11:11 AM Hip/Pelvis X-Ray 11/25/22 09:58 XR hip RT 2V w pelvis HISTORY: 67 years-old Female fall, amb dysfunction; pain . Acute pelvic pain status post fall COMPARISON: Acute abdominal series radiographs 06/04/2019 TECHNIQUE: AP view of the pelvis with 2 views of the right hip FINDINGS: Mild osteoarthritis of the hips. There is an acute nondisplaced transcervical right femoral fracture with mild impaction. No additional acute fracture, dislocation or avascular necrosis. IMPRESSION: Acute slightly impacted nondisplaced transcervical fracture of the right femur. ACT 112: Negative or not required by law. The above report was generated using voice recognition software. It may contain grammatical, syntax or spelling errors. Electronically signed by: Wilman Philip M.D. 11/25/2022 12:10 PM Hip X-Ray 11/25/22 13:27 XR hip RT 1V HISTORY: 67 years-old Female shoot thru lateral acute fracture of the right femoral neck COMPARISON: Pelvis and right hip radiographs of same day TECHNIQUE: Crosstable lateral view of the right hip. FINDINGS: Redemonstration of the acute nondisplaced transcervical right femoral neck fracture with minimal impaction. No dislocation. IMPRESSION: Unchanged appearance of the acute nondisplaced transcervical fracture of the right femur. ACT 112: Negative or not required by law. The above report was generated using voice recognition software. It may contain grammatical, syntax or spelling errors. Electronically signed by: Wilman Philip M.D. 11/25/2022 1:39 PM Discharge Plan Visit Data Chief Complaint: Hip Pain Stated Complaint: RT HIP PAIN S/P FALL ED Provider: Edmond Jennings Discharge Problem: Closed hip fracture, Fall, Hyperglycemia Patient Disposition: Admitted As Inpatient Discharge Instructions Interventions: ED Discharge Assessment Last Done: 11/25/22 14:26 Forms Stand Alone Forms: My [employer] Prescriptions Prescriptions: No Action metformin 1,000 mg tablet 1,000 mg PO BID Qty: 180 3RF atorvastatin 40 mg tablet 40 mg PO HS Qty: 90 3RF amlodipine 10 mg tablet 10 mg PO QAM Qty: 30 11RF trazodone 50 mg tablet 50 mg PO DAILY Qty: 30 5RF aspirin [Adult Low Dose Aspirin] 81 mg tablet,delayed release (DR/EC) 81 mg PO QAM Referrals Referrals: Darnell Adhikari MD [Primary Care Provider] -
[2022-11-25] MEDS ORDERED: ACETAMINOPHEN 500 MG TAB PO STA (09:59)
[2022-11-25] MEDS ORDERED: MoRPHine SULFATE 4 MG/ML 1 ML CARP\\VIAL IV STA (09:59)
[2022-11-25 10:25] LABS: Basophils # (auto) 0.02 K/uL (0-0.2); Basophils % (auto) 0.2 %; Eosinophils # (auto) 0.04 K/uL (0-0.50); Eosinophils % (auto) 0.4 %; Hematocrit (blood only) 36.7 % (37.0-47.0); Hemoglobin 12.4 g/dl (12.0-16.0); Immature Granulocytes # (auto) 0.03 K/uL (0.01-0.20); Immature Granulocytes % (auto) 0.3 %; Lymphocytes # (auto) 1.17 K/uL (1.2-3.4); Mean Corpuscular Hemoglobin 30.2 pg (25.0-34.0); Mean Corpuscular Hgb Conc 33.8 g/dL (32.0-36.0); Mean Corpuscular Volume 89.3 fL (80.0-100.0); Mean Platelet Volume 9.7 fL (9.4-12.4); Monocytes % (auto) 5.1 %; Platelet Count 214 K/uL (130-400); RDW Coefficient of Variation 12.6 % (11.5-14.5); Red Blood Count 4.11 M/uL (4.20-5.40); White Blood Count 9.76 K/ul (4.8-10.8)
[2022-11-25 10:36] LABS: Partial Thromboplastin Time 27.3 Seconds (21.0-31.0); Prothrombin Time 10.9 Seconds (9.0-12.0)
[2022-11-25 10:46] LABS: Albumin Globulin Ratio 1.8 (0.9-2); Albumin Level 4.8 gm/dl (3.4-5.0); BUN Creatinine Ratio 18.9 (10-20); Bilirubin,Total 1.1 mg/dl (0.2-1.0); Calcium 9.9 mg/dl (8.5-10.1); Est GFR (African American) 113.1 ml/min; Est GFR (Non-African American) 97.6 ml/min; Globulin 2.7 gm/dl (2.5-4.0); Potassium 3.7 mmol/L (3.5-5.1); Total Protein 7.5 gm/dl (6.0-8.3)
--- NOTE | 2022-11-25 11:13 | CT Scan Report ---
CT head/brain wo con CLINICAL HISTORY: 67 years-old Female with fall, headstrike. Acute head trauma status post fall TECHNIQUE: Multiple axial CT images of the head were obtained without contrast. A dose lowering tech nique was utilized adhering to the principles of ALARA. CT DOSE: 614.27 mGy.cm COMPARISON: None. FINDINGS: No acute intracranial hemorrhage, midline shift, intracranial mass, hydrocephalus, territorial ischem ia or abnormal extra-axial collection. Mild involutional changes. White matter hypodensities suggesti ve of chronic microvascular ischemic disease. The calvarium is intact. The paranasal sinuses, mastoid air cells, and middle ear cavities are clear . IMPRESSION: No acute intracranial abnormality or calvarial fracture. ACT 112: Negative or not required by law. The above report was generated using voice recognition software. It may contain grammatical, syntax o r spelling errors. Electronically signed by: Wilman Philip M.D. 11/25/2022 11:11 AM
--- NOTE | 2022-11-25 12:12 | XRay Report ---
XR hip RT 2V w pelvis HISTORY: 67 years-old Female fall, amb dysfunction; pain . Acute pelvic pain status post fall COMPARISON: Acute abdominal series radiographs 06/04/2019 TECHNIQUE: AP view of the pelvis with 2 views of the right hip FINDINGS: Mild osteoarthritis of the hips. There is an acute nondisplaced transcervical right femoral fracture with mild impaction. No additional acute fracture, dislocation or avascular necrosis. IMPRESSION: Acute slightly impacted nondisplaced transcervical fracture of the right femur. ACT 112: Negative or not required by law. The above report was generated using voice recognition software. It may contain grammatical, syntax o r spelling errors. Electronically signed by: Wilman Philip M.D. 11/25/2022 12:10 PM
[2022-11-25] MEDS ORDERED: diphenhydrAMINE 50 MG/ML VIAL IV STA (13:12)
--- NOTE | 2022-11-25 13:18 | History & Physical Report ---
Date of Service November 25, 2022 Assessment & Plan (1) Closed right hip fracture: Plan: Right hip fracture 2/2 fall Hip/pelvis XR: Acute slightly impacted nondisplaced transcervical fracture of the right femur No neck injury, head CT naf. Patient is with no pain and normal range of motion of neck by time of bedside eval Nonweightbearing [facility]o., [facility] Creatinine is with normal baseline and 0.53 on admission. No sodium or potassium derangements. No leukocytosis. Hemoglobin is 12.4. Admitting EKG is normal sinus rhythm without territorial ST segment or T wave changes, QTC 454. No history of chest pain/angina, no history of heart disease. RCRI 0 points. Not elevated risk surgery, no history of ischemic heart disease, no history of CHF, no history of TIA/stroke, no treatment with insulin, and creatinine is less than 2. EKG is without ischemic changes, no modifiable risk factors. - No blood thinners, takes aspirin daily but last took aspirin 81mg 11/24/22. - Last ate yesterday evening. Had some soup. Has not had anythign other than a sip of water with her pills this morning. Type II DM Hold metformin, last took 11/25/21. Basal bolus insulin Glucose checks AC/at bedtime Goal BSG 341133 Weight based Basal 7u BID dose reduced to 5u while npo. CF 55, Ratio 20. Hyperlipidemia Continue atorvastatin Hypertension Continue amlodipine 10 mg daily. Last took 2/4 AM. Hold aspirin pending operative intervention, resume 24 hours postop Allergic Dermatitis - Intermittent on bilat forearms, back, prince legs. Resolved with benadryl. No hx mucousal/airway invovlement - Rash present on admit, improving after IV benadryl - Can use hydroxyzine daily AM in the future, may have longer duration and better derm effect - NKMA DVT PPx: SCDs, postop ppx per surgical team CODE STATUS: Full Code Diet: NPO Dispo: Med/Surg (2) Diabetes mellitus type 2, uncontrolled: (3) Depression: (4) Acid reflux disease: (5) Hyperlipidemia: (6) Hypertension: History of Present Illness Primary Care Provider: Darnell Adhikari MD Delicia is a 67-year-old female with a past medical history of poorly controlled type II DM, hyperlipidemia, hypertension, anxiety, and GERD who presented after mechanical fall and sustaining a hip fracture. Case was discussed by ER with orthopedics who recommended operative evaluation and admission to medicine. Was walking in the dark last night and slipped and fell striking her R leg. No lightheadedness, dizziness, syncope, presycnope, or chest pain. Hx of R knee problems seen by Dr. shetty in the past. No hx joint replacements. R lateral hip extending to anterior thight painful to her with any attempted weight bearing No numbness or tingling Gets daily hives if she does not take benadryl. Missed a dose today and has some rash on her arms. ORdered benadryl IV which works well for her in the past. OK to trial hydroxyzine. Does not take any other nonsedating antihistatines No problems with chest chest pain or SoB going up stairs. No nausea, vomiting, diarrhea, constipation. No hx bleeding Is not on blood thinners Medical History: Reviewed Medications: Reviewed Surgical History: Reviewed Allergies: Reviewed. NKDA Social History: No tobacco use, no alcohol use. Code Status: Primary contact Daughter Stefania. [phone]. Full Code Allergies Allergy/AdvReac Type Severity Reaction Status Date / Time No Known Allergies Allergy Verified 06/19/22 13:31 Home Medications Medication Instructions Recorded Confirmed Type aspirin 81 mg tablet,delayed 81 mg PO QAM 05/28/19 06/19/22 History release (Adult Low Dose Aspirin) metformin 1,000 mg tablet 1,000 mg PO BID #180 tabs 10/26/21 06/19/22 Rx amlodipine 10 mg tablet 10 mg PO QAM #30 tabs 06/19/22 06/19/22 Rx trazodone 50 mg tablet 50 mg PO DAILY #30 tabs 06/19/22 06/19/22 Rx atorvastatin 40 mg tablet 40 mg PO HS #90 tabs 08/28/22 Rx Past Med/Surg History Medical History Acid reflux disease Depression Diabetes mellitus type 2, uncontrolled Diverticulosis of colon Fatty liver Hyperlipidemia Hypertension Hypoalbuminemia Internal hemorrhoids Microalbuminuria Proteinuria Surgical History History of appendectomy History of cholecystectomy Family History Father Diabetes Hypertension Stroke Hyperlipidemia associated with type 2 diabetes mellitus Mother Dementia Denies family history of Ovarian cancer Prostate cancer Myocardial infarction Breast cancer Colorectal cancer Social History Smoking Status: Never smoker Second Hand Exposure: No; Hx Alcohol Use: No Hx Substance Use: No Preferred Language: Swedish Communication Ability: Effective Visual Impairment: No Limitations Hearing Ability: Normal Beliefs That Will Affect Care: None marital status: Current Living Situation: Spouse current occupational status: retired 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 NAD. Cooperative. Skin: Diffuse scant pruritic rash on forearms, improving psot benadryl HEENT: Atraumatic, normocephalic. PERLAA Pulm: CTAB A&P. -wheezes, -rales, -rhonchi. Symmetrical chest rise. No increased work of breathing. No respiratory distress. Cardiac: RRR, -mrg. Radial pulses intact and symmetrical. Abdominal: Nontender, nondistended, soft. BS present. Ext: R hip ttp at lateral hip. Externally rotated, slightly shorted. PT pulse intact bilat. Able to wiggle toes bilaterally. Sensation intact to soft touch bilaterally. Cap refill brisk in foot bilat. Results & Data Results & Data ([facility]) Vital Signs (Past 12 Hours) Vital Signs Temp Pulse Resp BP Pulse Ox O2 Del Method 11/25/22 09:43 36.4 C L 70 20 176/95 H 98 Room Air Code Status & VTE Plan VTE Prophylaxis Plan VTE Prophylaxis will be ordered: Yes PG Care Time/CCT Total # of Minutes Spent Total Time Spent with Patient: Total time spent is greater than 50% in coordination of care (as documented) at patient's floor/unit and/or counseling patient: Coding Level of Care Code 59337 INT INP/OBS CARE 2/55MIN Diagnoses Closed right hip fracture S72.001A Diabetes mellitus type 2, uncontrolled E11.65 Depression F32.9 Acid reflux disease K21.9 Esophagitis presence: without esophagitis Hyperlipidemia E78.5 Hypertension I10 Hypertension type: essential hypertension (1) Acid reflux disease Esophagitis presence: without esophagitis Qualified Code(s): K21.9 - Gastro- esophageal reflux disease without esophagitis (2) Hypertension Hypertension type: essential hypertension Qualified Code(s): I10 - Essential (primary) hypertension
--- NOTE | 2022-11-25 13:19 | Electrocardiogram Report ---
Test Reason : Blood Pressure : / mmHG Vent. Rate : 066 BPM Atrial Rate : 066 BPM P-R Int : 160 ms QRS Dur : 084 ms QT Int : 434 ms P-R-T Axes : 058 001 006 degrees QTc Int : 454 ms Normal sinus rhythm Poor R wave progression, consider anterior GA vs. lead placement vs. LVH Abnormal ECG When compared with ECG of 19-MAY-2019 17:51, Vent. rate has decreased BY 33 BPM Confirmed by Iker Aviles ([id number]) on 11/25/2022 1:19:22 PM Referred By: REFERRED SELF Confirmed By:Iker Aviles
--- NOTE | 2022-11-25 13:40 | XRay Report ---
XR hip RT 1V HISTORY: 67 years-old Female shoot thru lateral acute fracture of the right femoral neck COMPARISON: Pelvis and right hip radiographs of same day TECHNIQUE: Crosstable lateral view of the right hip. FINDINGS: Redemonstration of the acute nondisplaced transcervical right femoral neck fracture with minimal impa ction. No dislocation. IMPRESSION: Unchanged appearance of the acute nondisplaced transcervical fracture of the right femur. ACT 112: Negative or not required by law. The above report was generated using voice recognition software. It may contain grammatical, syntax o r spelling errors. Electronically signed by: Wilman Philip M.D. 11/25/2022 1:39 PM
--- NOTE | 2022-11-25 14:04 | Progress Notes ---
DATE OF SERVICE: 11/25/2022 SUBJECTIVE: Delicia is 67 years old. She tripped and fell last night coming home from work. Landed on her right hip. She was able to get up without difficulty and walk into the house. She subsequently started to have some pain in her right hip. That worsened today. She began to have pain when she w as walking and had more difficulty bending her right hip. She came to the ER where x-rays demonstrat ed a nondisplaced right femoral neck fracture. She has not eaten or drank anything since last evenin g. PAST MEDICAL HISTORY: Consists of type 2 diabetes and high blood pressure. Otherwise noted. MEDICATIONS: Amlodipine, aspirin, atorvastatin, metformin, and trazodone. ALLERGIES: None. No metal allergy. OBJECTIVE: Blood pressure is a little bit high, but vital signs are otherwise stable. White count n ormal, hemoglobin 12, hematocrit 37, and platelets 214. Her PRP is noted. PT/INR is within normal l imits. Her x-ray of the left hip shows a nondisplaced fracture of the femoral neck, transcervical. SARS COVID test is negative. The hip fracture is not displaced. Examination demonstrates 1+ palpable DP and PT pulses, 5/5 ankle and toe plantar flexion, dorsiflexio n, inversion, and eversion strength. Sensation intact. The leg is not swollen. There is no bruisin g. She can slightly bend her knee, but this causes a pressure soreness feeling in her right hip. Th e hip is nontender. The right leg is nontender to palpation. IMPRESSION: Nondisplaced fracture of the right femoral neck. PLAN: Findings discussed. Options reviewed. I recommend surgical stabilization. Percutaneous scre ws versus partial replacement. We talked about risks, benefits, rehab, and recovery. She has no iss ues with bleeding, blood clots, metal allergies, or MRSA. She agrees to proceed. Informed consent w as obtained. Surgery when the OR is ready today. Job ID: [id number]
--- NOTE | 2022-11-25 14:10 | Anesthesiology Consultation ---
Date of Service November 25, 2022 Assessment & Plan (1) Encounter for pre-operative examination: Chart Review Chart Review: Acceptable Risk for Surgery History Surgery Operation Date: 11/25/22 14:30 Proposed Procedures p Right hip percutaneous hip pinning(Right) - Gregg Braden MD Height/Weight Height: 5 ft 4 in Weight: 80 kg Allergies Allergy/AdvReac Type Severity Reaction Status Date / Time No Known Allergies Allergy Verified 06/19/22 13:31 Medications Home Medications Medication Instructions Recorded Confirmed Last Taken aspirin 81 mg tablet,delayed 81 mg PO QAM 05/28/19 06/19/22 Unknown release (Adult Low Dose Aspirin) metformin 1,000 mg tablet 1,000 mg PO BID #180 tabs 10/26/21 06/19/22 Unknown amlodipine 10 mg tablet 10 mg PO QAM #30 tabs 06/19/22 06/19/22 Unknown trazodone 50 mg tablet 50 mg PO DAILY #30 tabs 06/19/22 06/19/22 Unknown atorvastatin 40 mg tablet 40 mg PO HS #90 tabs 08/28/22 Unknown Past Medical History Medical History Acid reflux disease Depression Diabetes mellitus type 2, uncontrolled Diverticulosis of colon Fatty liver Hyperlipidemia Hypertension Hypoalbuminemia Internal hemorrhoids Microalbuminuria Proteinuria Past Family History Family History Father Diabetes Hypertension Stroke Hyperlipidemia associated with type 2 diabetes mellitus Mother Dementia Denies family history of Ovarian cancer Prostate cancer Myocardial infarction Breast cancer Colorectal cancer Past Surgical History Surgical History History of appendectomy History of cholecystectomy Social History Smoking Status: Never smoker Hx Alcohol Use: No Hx Substance Use: No Physical Exam Vital Signs Last Vital Signs Temp 36.4 C L 11/25/22 09:43 Pulse 70 11/25/22 09:43 Resp 20 11/25/22 09:43 BP 176/95 H 11/25/22 09:43 Pulse Ox 98 11/25/22 09:43 O2 Del Method 11/25/22 09:43 Testing Laboratory Results 11/25/22 10:15 11/25/22 10:15 PT 10.9 Seconds (9.0-12.0) 02/04/23 10:15 INR 1.0 (0.9-1.1) 11/25/22 10:15 APTT 27.3 Seconds (21.0-31.0) 11/25/22 10:15 Electrocardiogram Date: 11/25/22 Findings: + NSR @ (66) and + poor R wave progression
[2022-11-25] MEDS ORDERED: fentaNYL citrate 100 MCG/2 ML VIAL ONE (14:22)
[2022-11-25] MEDS ORDERED: MIDAZOLAM HCL 1 MG/ML 2ML VIAL ONE (14:23)
[2022-11-25] MEDS ORDERED: LIDOCAINE 2% MPF LOCAL 5 ML VIAL INFIL ONE (14:26)
[2022-11-25] MEDS ORDERED: ONDANSETRON INJ 2 MG/ML 2 ML VIAL ONE (14:26)
[2022-11-25] MEDS ORDERED: DEXAMETHASONE SOD INJ 4 MG/ML VIAL ONE (14:26)
[2022-11-25] MEDS ORDERED: ROCURONIUM BROMIDE 10 MG/ML 5 ML VIAL IV ONE (14:26)
[2022-11-25] MEDS ORDERED: PROPOFOL IV EMULSION 10 MG/ML 20 ML VIAL IV ONE (14:26)
[2022-11-25] MEDS ORDERED: ONDANSETRON INJ 2 MG/ML 2 ML VIAL IV PRN (14:35)
[2022-11-25] MEDS ORDERED: ATROPINE SULFATE 0.1 MG/ML 10ML SYR IV PRN (14:35)
[2022-11-25] MEDS ORDERED: LABETALOL HCL IV 5 MG/ML 20ML IV PRN (14:35)
[2022-11-25] MEDS ORDERED: PROMETHAZINE HCL 6.25 MG in SODIUM CHLORIDE 0.9% 50 ML IV PRN (14:35)
[2022-11-25] MEDS ORDERED: HYDROmorphone INJ 1 MG/ML SYRINGE IV PRN (14:35)
[2022-11-25] MEDS ORDERED: KETOROLAC 30 MG/ML VIAL IV PRN (14:35)
[2022-11-25] MEDS ORDERED: LIDOCAINE 1% LOCAL 20 ML VIAL ONE (14:52)
[2022-11-25] MEDS ORDERED: BUPIVACAINE 0.5 % 5 MG/1 ML MPF 30ML VIAL ONE (14:52)
[2022-11-25] MEDS ORDERED: ceFAZolin 2000MG 2,000 MG/15 ML SYR IV ONE (15:46)
[2022-11-25] MEDS ORDERED: GLYCOPYRROLATE 0.2 MG/ML VIAL ONE (16:38)
[2022-11-25] MEDS ORDERED: NEOSTIGMINE METHYLSULFATE 1 MG/ML 10ML VIAL ONE (16:38)
--- NOTE | 2022-11-25 16:43 | Fluoroscopy Report ---
FL hip RT 2-3V CLINICAL HISTORY: RIGHT CANNULATED SCREWacute fracture of the right hip COMPARISON STUDY: Radiographs of same day FLUOROSCOPY TIME: 123.4 seconds FLUOROSCOPY IMAGES: 3 EXPOSURE DOSE: 34.15 mGy FINDINGS: Status post placement of 3 cannulated screws fixating the acute nondisplaced right femoral neck fracture. Satisfactory alignment. The hardware appears intact. Expected postoperative soft tissu e swelling with deep tissue air. IMPRESSION: Fluoroscopic assistance as above. ACT 112: Negative or not required by law. Electronically signed by: Wilman Philip M.D. 11/25/2022 4:42 PM
--- NOTE | 2022-11-25 16:45 | Operative Report ---
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 Fell last evening injuring her right hip. Because of pain came to the ER was found to have a nondisplaced right femoral neck fracture. I recommended surgery and she agreed to proceed. Description of Procedure Informed consent obtained. Patient identified. She identified the operative site as the right hip. I marked with my initials. Surgical timeout was performed. Preop dose of IV antibiotics was given. She was taken to the OR positioned supine on the fracture table. She was placed into gentle traction. Perineal post was utilized. Arms were folded over the chest. Leg was placed in physiologic a 80 to 90 degrees of flexion abduction and external rotation on the left side. Torso secured to the table. Fluoroscopic guidance was utilized to identify the bony landmarks orientation. Bony prominences were inspected and padded. Fracture was anatomically aligned without significant displacement or angulation. DVT prophylaxis with SCDs intraoperatively and mechanical devices and Lovenox postoperatively along with early mobility. General anesthetic administered. Prepped and draped in usual sterile fashion. Using fluoroscopic guidance a 6 cm incision was made over the lateral thigh. A guidepin was introduced inferior along the femoral neck beginning just above the lesser trochanter. This first guidepin was inferior on the AP and central on the lateral. It was adjusted x2 to the right position. The next guidepin was placed posterior and central and the third guidepin was placed anterior and superior. After confirming good position the screws were measured for length the near cortex was open, a countersink was utilized and then screws of appropriate depth were inserted. 7.3 mm cannulated Synthes screws. Threads were across the fracture site. The fracture was anatomically reduced. The hardware was in good position. The guidepins were removed. Irrigation was performed. Bleeding controlled hemostasis. The deep subcutaneous fat layer was closed in 1 layer with 0 and #1 Vicryl. The skin was closed with 2-0 Vicryl and lynn. A soft dressing was applied Xeroform 4 x 4's ABD foam tape. Patient was awakened from anesthesia without difficulty and taken to the recovery room after being transferred to the hospital bed. Stable condition no specimens or complications counts correct blood loss 10 cc at the conclusion of the operation and spoke to patient's family informed of my findings and gave postop instructions. 10 cc of local anesthetic were injected into the skin and subcutaneous tissues at the conclusion of the operation. She may weight-bear as tolerated. I attest to the content of the Intraoperative Record and any orders documented therein. Any exceptions are noted below.
[2022-11-25] MEDS ORDERED: CARBOHYDRATES FOR HYPOGLYCEMIA PO PRN (17:36)
[2022-11-25] MEDS ORDERED: LACTATED RINGER'S 1,000 ML IV SCH (17:36)
[2022-11-25] MEDS ORDERED: MoRPHine SULFATE 4 MG/ML 1 ML CARP\\VIAL IV PRN (17:36)
[2022-11-25] MEDS ORDERED: MoRPHine SULFATE 2 MG/ML CARP IV PRN (17:36)
[2022-11-25] MEDS ORDERED: NALOXONE HCL 0.4 MG/1 ML VIAL/CARP IV PRN (17:36)
[2022-11-25] MEDS ORDERED: bisacodyL 10 MG SUPP PR PRN (17:36)
[2022-11-25] MEDS ORDERED: DEXTROSE 50% 50 ML SYRINGE IV PRN (17:36)
[2022-11-25] MEDS ORDERED: GLUCOSE 10 TAB/TUBE PO PRN (17:36)
[2022-11-25] MEDS ORDERED: GLUCOSE 40% GEL 15 GM TUBE PO PRN (17:36)
[2022-11-25] MEDS ORDERED: GLUCAGON FOR INJ 1 MG VIAL SQ PRN (17:36)
[2022-11-25] MEDS ORDERED: MAGNESIUM HYDROXIDE SUSP 30 ML UDC PO PRN (17:36)
[2022-11-25] MEDS ORDERED: COUGH DROP (SUGAR FREE) LOZ 24 LOZ/1 BOX BUCCAL PRN (17:36)
[2022-11-25] MEDS: SODIUM CHLORIDE 0.9% 500 ML IV SCH (18:28)
[2022-11-25] MEDS: INSULIN ASPART PER UNIT SC SCH ×2 (18:29→20:49)
--- NOTE | 2022-11-25 18:56 | Anesthesiology Progress Note ---
Date of Service November 25, 2022 Anesthesia Post Procedure Vital Signs Vital Signs: Temp Pulse Pulse Pulse Resp BP BP 11/25/22 18:28 36.6 C 75 18 120/68 11/25/22 18:00 36.8 C 74 16 122/78 11/25/22 17:30 11/25/22 17:30 36.8 C 68 16 123/74 11/25/22 17:10 36.4 C L 75 18 132/68 11/25/22 17:00 72 17 116/59 L 11/25/22 16:50 71 17 130/70 11/25/22 16:42 36.5 C 78 16 125/68 11/25/22 14:26 78 16 152/84 H 11/25/22 09:43 36.4 C L 70 20 176/95 H Pulse Ox O2 Del Method O2 Flow Rate 11/25/22 18:28 96 Room Air 11/25/22 18:00 98 Room Air 11/25/22 17:30 Room Air 11/25/22 17:30 95 Room Air 11/25/22 17:10 95 Room Air 11/25/22 17:00 94 Room Air 11/25/22 16:50 97 Oxymask 4 11/25/22 16:42 99 Oxymask 10 11/25/22 14:26 98 Room Air 11/25/22 09:43 98 Room Air Pain Intensity Right Hip: Pain Intensity: 4 Transfer of Care Handoff Completed per policy Notes Mental Status: alert / awake / arousable Patient Amnestic to Procedure: Yes Nausea / Vomiting: adequately controlled Pain: adequately controlled Airway Patency, RR, SpO2: stable & adequate BP & HR: stable & adequate Hydration State: stable & adequate Anesthetic Complications: no major complications apparent
[2022-11-25] MEDS: hydrOXYzine HCl 10 MG TAB PO PRN (19:25)
[2022-11-25] MEDS: DOCUSATE SODIUM/SENNA 50/8.6MG TAB PO SCH (20:46)
[2022-11-25] MEDS: LANTUS PER UNIT CHARGE SQ SCH (20:49)
[2022-11-25] MEDS: ceFAZolin 2000MG 2,000 MG/15 ML SYR IV SCH (22:48)
[2022-11-26] MEDS: ACETAMINOPHEN 325 MG TAB PO PRN ×3 (05:55→22:53)
[2022-11-26] MEDS: ceFAZolin 2000MG 2,000 MG/15 ML SYR IV SCH (05:55)
[2022-11-26] MEDS ORDERED: diphenhydrAMINE Capsule 25 MG CAP PO ONE (06:09)
[2022-11-26 06:54] LABS: Basophils # (auto) 0.02 K/uL (0-0.2); Basophils % (auto) 0.2 %; Eosinophils # (auto) 0.01 K/uL (0-0.50); Eosinophils % (auto) 0.1 %; Hematocrit (blood only) 35.1 % (37.0-47.0); Hemoglobin 12.1 g/dl (12.0-16.0); Immature Granulocytes # (auto) 0.02 K/uL (0.01-0.20); Immature Granulocytes % (auto) 0.2 %; Lymphocytes # (auto) 0.83 K/uL (1.2-3.4); Lymphocytes % (auto) 8.2 %; Mean Corpuscular Hemoglobin 30.7 pg (25.0-34.0); Mean Corpuscular Hgb Conc 34.5 g/dL (32.0-36.0); Mean Corpuscular Volume 89.1 fL (80.0-100.0); Mean Platelet Volume 9.7 fL (9.4-12.4); Monocytes # (auto) 0.48 K/uL (0.11-0.59); Monocytes % (auto) 4.7 %; Neutrophils # (auto) 8.79 K/uL (1.40-6.50); Neutrophils % (auto) 86.6 %; Platelet Count 222 K/uL (130-400); RDW Coefficient of Variation 12.6 % (11.5-14.5); RDW Standard Deviation 41.2 fL (36.4-46.3); Red Blood Count 3.94 M/uL (4.20-5.40); White Blood Count 10.15 K/ul (4.8-10.8)
[2022-11-26 07:20] LABS: BUN Creatinine Ratio 14.3 (10-20); Calcium 9.8 mg/dl (8.5-10.1); Creatinine Clr Calc Pharmacy 87.5 ml/min; Est GFR (African American) 106.8 ml/min; Est GFR (Non-African American) 92.2 ml/min; Potassium 3.9 mmol/L (3.5-5.1)
[2022-11-26] MEDS ORDERED: ENOXAPARIN INJ 40 MG/0.4 ML SYR SQ SCH (08:00)
[2022-11-26] MEDS ORDERED: ERGOCALCIFEROL 50,000 UNITS 1250 MCG CAP PO STA (08:42)
[2022-11-26] MEDS: LANTUS PER UNIT CHARGE SQ SCH ×2 (09:00→21:05)
[2022-11-26] MEDS: INSULIN ASPART PER UNIT SC SCH ×4 (09:00→21:05)
[2022-11-26] MEDS: amLODIPine BESYLATE 5 MG TAB PO SCH (09:01)
[2022-11-26] MEDS: ENOXAPARIN INJ 40 MG/0.4 ML SYR SQ SCH (09:01)
[2022-11-26] MEDS: PANTOprazole 40 MG TAB PO SCH (09:01)
[2022-11-26] MEDS: hydrOXYzine HCl 10 MG TAB PO PRN (09:11)
--- NOTE | 2022-11-26 10:18 | Hospitalist Progress Note ---
Date of Service November 26, 2022 Assessment & Plan (1) Closed right hip fracture: Plan: Right hip fracture 2/2 mechanical fall Hip/pelvis XR: Acute slightly impacted nondisplaced transcervical fracture of the right femur No neck injury, head CT naf. Patient is with no pain and normal range of motion of neck by time of bedside eval Orthopedics consulted Creatinine is with normal baseline and 0.53 on admission. No sodium or potassium derangements. No leukocytosis. Hemoglobin is 12.4. Admitting EKG is normal sinus rhythm without territorial ST segment or T wave changes, QTC 454. No history of chest pain/angina, no history of heart disease. RCRI 0 points. Not elevated risk surgery, no history of ischemic heart disease, no history of CHF, no history of TIA/stroke, no treatment with insulin, and creatinine is less than 2. EKG is without ischemic changes, no modifiable risk factors. - s/p ORIF R hip by Dr. Braden on 11/25/22 - Vitamin D sufficient at 27.3 - PT/OT eval - pt able to return home - DVT ppx for minimum of 30 days, would recommend use of prophylactic dose Xarelto 10mg daily. D/w Dr. Braden, will 2 weeks of Xarelto then transition to ASA 81mg BID x 2 weeks (2) Diabetes mellitus type 2, uncontrolled: Plan: Hold metformin, last took 11/25/21. Basal bolus insulin Glucose checks AC/at bedtime Goal BSG [id number] Weight based Basal 7u BID dose reduced to 5u while npo. CF 55, Ratio 20. (3) Depression: Plan: - Continue Trazodone (4) Hyperlipidemia: Plan: - Continue Atorvastatin (5) Hypertension: Plan: - Continue Amlodipine Plan Plan as outlined above. No need for repeat labs tomorrow AM. Patient will be discharged to home in care of tomorrow. Plan to be d/w Dr. Oliver. Admission and Anticipated Discharge Date Admission Date: November 25, 2022 Subjective Patient seen on daily rounds this morning. She is resting comfortably in bedside chair. Seen ambulating in halls with therapy. Reports she has no pain in her right leg. Denies cp or dyspnea. No h/o PE or DVT in the past. Physical Exam Physical Exam: GENERAL: 67 yo Well-developed, well-nourished WF. NAD. LUNGS: Clear to auscultation bilaterally. CARDIOVASCULAR: Regular rate and rhythm. ABDOMEN: Soft, NT, ND. Bs normoactive x 4 quad. EXTREMITIES: No edema. Non-tender. Peripheral pulses +2/4. Right hip incision dressed. Dressing intact/dry. Neg eddie's sign. Results & Data Results & Data ([facility]) Vital Signs (Past 12 Hours) Vital Signs Temp Pulse Resp BP Pulse Ox O2 Del Method 11/26/22 07:15 Room Air 11/26/22 07:22 36.6 C 70 16 159/85 H 95 Room Air 11/26/22 03:30 36.6 C 78 18 154/81 H 94 Room Air 11/26/22 00:00 36.5 C 71 18 124/75 93 Room Air Laboratory Results 11/26/22 06:19 11/26/22 06:19 PG Care Time/CCT Total # of Minutes Spent Total Time Spent with Patient: Total time spent is greater than 50% in coordination of care (as documented) at patient's floor/unit and/or counseling patient: Coding Level of Care Code 96861 SUB INP/OBS CARE 2/35MIN Diagnoses Closed right hip fracture S72.001A Diabetes mellitus type 2, uncontrolled E11.65 Depression F32.9 Hyperlipidemia E78.5 Hypertension I10 Hypertension type: essential hypertension (1) Hypertension Hypertension type: essential hypertension Qualified Code(s): I10 - Essential (primary) hypertension
--- NOTE | 2022-11-26 10:52 | Progress Notes ---
DATE OF SERVICE: 11/26/2022. SUBJECTIVE: Postoperative day #1, status post percutaneous screws for a nondisplaced right femoral n shree fracture. She is doing very well. She has been up and about ambulating yesterday and today. Kamran travis is doing well with PT. She did develop a rash all over her body. She states that she gets this fairly regularly, but this i s worse than normal. It is not itchy. She has no swelling of lips, tongue or throat. No chest pain , shortness of breath or wheezing. She is afebrile. Her vital signs are stable. White count normal, hemoglobin 12, hematocrit 35, plat elets 222. Her PRP is noted. Her vitamin D level is low and replacement is ordered. She has a raised red plaque-like rash on arms, legs and back. Small raised plaque-like disks about 0 .5 to 1 cm in diameter. Her right thigh is unremarkable in terms of swelling. Dressing clean and dry. She can bend her knee about 70 degrees. The knee does not fully straighten and this is chronic due to previous right knee injury. PT pulse 1+. Ankle and toe plantarflexion, dorsiflexion, eversion 5/5. Sensation normal. No significant swelling. ASSESSMENT: 1. Rash. 2. Right hip fracture. PLAN: I will defer to Medicine regarding addressing the rash. In terms of the hip fracture, weightb ear as tolerated, DVT prophylaxis with Lovenox. Use walker. If doing well, she could be discharged in the near future with home health services. She will receive routine course of postoperative IV an tibiotics. Her pain is well controlled. Job ID: [id number]
[2022-11-26] MEDS: DOCUSATE SODIUM/SENNA 50/8.6MG TAB PO SCH (19:43)
[2022-11-27] MEDS: ACETAMINOPHEN 325 MG TAB PO PRN (06:44)
[2022-11-27] MEDS: amLODIPine BESYLATE 5 MG TAB PO SCH (09:00)
[2022-11-27] MEDS ORDERED: ENOXAPARIN INJ 40 MG/0.4 ML SYR SQ SCH (09:00)
[2022-11-27] MEDS: ENOXAPARIN INJ 40 MG/0.4 ML SYR SQ SCH (09:01)
[2022-11-27] MEDS: PANTOprazole 40 MG TAB PO SCH (09:01)
[2022-11-27] MEDS: INSULIN ASPART PER UNIT SC SCH ×2 (09:02→12:49)
[2022-11-27] MEDS: LANTUS PER UNIT CHARGE SQ SCH (09:02)
[2022-11-27 09:24] LABS: Estimated Average Glucose 169 mg/dl; Hemoglobin A1C 7.5 % (4.5-5.6)
--- NOTE | 2022-11-27 10:01 | Orthopedic Progress Note ---
Date of Service November 27, 2022 Assessment & Plan (1) Closed hip fracture: Plan: POD 2 - s/p ORIF right hip with Dr. Braden PT/OT - february WBAT and do full ROM right hip Keep dressing in place right hip x 2 more days. May shower with dressing in place. Ice to right hip as needed for pain/swelling. Use walker to assist with ambulation Vitamin D deficiency - continue Vitamin D supplementation 50,000 IU weekly. Continue Lovenox for DVT prophylaxis. OKay from ortho standpoint to switch to oral anticoagulant at discharge. Follow up with Dr. Braden in approximately 2 weeks for staple removal Okay from orthopedic standpoint for discharge today or when medically stalbe. Recommend discharge to home with HH. - Case management to arrange. Admission and Anticipated Discharge Date Admission Date: November 25, 2022 Subjective Patient sitting up in chair. Denies pain in right hip. States some mild stiffness in the morning. Feels that she is doing well. Denies chest pain, shortness of breath, nausea or vomiting. No lightheadedness or dizziness. Physical Exam Musculoskeletal: Right hip incision clean, dry and intact. Surgical dressings removed, lynn retained. No edema right lower extremity. Distal N/V intact. Calf supple and nontender. Unable to independently SLR today due to discomfort. Able to actively flex knee. Distal pulses 1+, foot is warm. No seroma or hematoma. No surrounding ecchymosis or erythema. Results & Data ([facility]) Vital Signs (Past 12 Hours) Vital Signs Temp Pulse Resp BP Pulse Ox O2 Del Method 11/27/22 08:00 36.8 C 80 16 128/80 99 Room Air Laboratory Results 11/27/22 11/26/22 11/26/22 Range/Units 08:17 20:30 17:10 POC Glucose 156 H 191 H 157 H (70-99) mg/dl Estimat Average Glucose mg/dl Hemoglobin A1c (4.5-5.6) % 11/26/22 11/26/22 Range/Units 12:13 06:19 POC Glucose 163 H (70-99) mg/dl Estimat Average Glucose 169 mg/dl Hemoglobin A1c 7.5 H (4.5-5.6) %
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
== END 2022-11-27 13:59 | disposition home health service (06) | DRG 482 ==
LOC: ED 09:42 → 3N 13:13 → SUATTDRO 13:13 → 3N 18:36